=== PATIENT | male | born 1950 | race Hispanic/Latino ===

== ENCOUNTER 2021-06-03 09:20 | Observation (INO) | payer MEDICARE, OTHER ==
[2021-06-03 10:18] LABS: Absolute Lymphocytes (CBC) 1.3 K/uL (0.7-4.9); Hematocrit 35.2 % (39.6-49.0); Lymphocytes % 16.8 % (15.3-44.8); MPV 8.4 fL (7.6-11.3); RBC Red Blood Cell Count 3.95 M/uL (4.33-5.43)
[2021-06-03 10:22] LABS: Protime INR 1.05
[2021-06-03] MEDS ORDERED: PIPERACIL/TAZO 3.375 GM VIAL IV ONE (10:22)
[2021-06-03] MEDS ORDERED: TETANUS & DIPHTHERIA TOX,ADULT 0.5 ML VIAL ONE (10:22)
[2021-06-03] MEDS ORDERED: NA CHLORIDE 0.9% 500 ML ONE ×2 (10:22→15:00)
[2021-06-03] MEDS ORDERED: NA CHLORIDE 0.9% 100 ML IV ONE (10:23)
[2021-06-03] MEDS ORDERED: NA CHLORIDE 0.9% 1,000 ML ONE ×2 (10:23→19:50)
[2021-06-03 10:38] LABS: Albumin 3.1 g/dL (3.4-5.0); Bilirubin Direct 0.1 mg/dL (0-0.2); Bilirubin Total 0.5 mg/dL (0.2-1.0); CKMB Creatine Kinase MB 4.1 ng/mL (1.0-3.6); Protein, Total 7.4 g/dL (6.4-8.2); Troponin High Sensitivity 9.2 pg/mL (<58.9)
[2021-06-03 10:39] LABS: Potassium 4.8 mmol/L (3.5-5.1)
[2021-06-03] MEDS ORDERED: MORPHINE 2 MG/ML SYR ONE (11:18)
[2021-06-03] MEDS ORDERED: ONDANSETRON 4 MG/2 ML VIAL ONE (11:18)
--- NOTE | 2021-06-03 11:24 | EDPHYS ---
Physician Documentation [facility] [place] Name: Aubrey Cardozo Age: 71 yrs Sex: Male : 1950 Arrival Date: 06/03/2021 Time: 09:24 Bed 5 Private MD: ED Physician Al Kerns HPI: 06/03 11:13 This 71 yrs old Male presents to ER via Ambulatory with complaints of Foot wade Pain - Cellulitis. 11:13 The patient presents with decreased range of motion, pain, that is acute. The wade complaints affect the right foot. Context: The problem was sustained at an unknown location. Onset: The symptoms/episode began/occurred 3 day(s) ago. Modifying factors: The symptoms are alleviated by elevation of extremity, the symptoms are aggravated by weight bearing, movement. Associated signs and symptoms: Pertinent positives: warmth, weakness. Severity of symptoms: At their worst the symptoms were mild, moderate, in the emergency department the symptoms are unchanged. Unable to obtain HPI due to. The patient has not experienced similar symptoms in the past. Historical: - Allergies: 09:38 No Known Allergies; ph - PMHx: 09:38 Diabetes mellitus; ph - Immunization history:: Client reports receiving the 2nd dose of the Covid vaccine. - Social history:: Smoking status: Patient denies any tobacco usage or history of. - Family history:: not pertinent. ROS: 11:13 Constitutional: Negative for fever, chills, and weight loss, Eyes: Negative for injury, wade pain, redness, and discharge, ENT: Negative for injury, pain, and discharge, Neck: Negative for injury, pain, and swelling, Cardiovascular: Negative for chest pain, palpitations, and edema, Respiratory: Negative for shortness of breath, cough, wheezing, and pleuritic chest pain, Abdomen/GI: Negative for abdominal pain, nausea, vomiting, diarrhea, and constipation, Back: Negative for injury and pain, : Negative for injury, bleeding, discharge, and swelling, Neuro: Negative for headache, weakness, numbness, tingling, and seizure, Psych: Negative for depression, anxiety, suicide ideation, homicidal ideation, and hallucinations, Allergy/Immunology: Negative for hives, rash, and allergies, Endocrine: Negative for neck swelling, polydipsia, polyuria, polyphagia, and marked weight changes, Hematologic/Lymphatic: Negative for swollen nodes, abnormal bleeding, and unusual bruising. 11:13 MS/extremity: Positive for decreased range of motion, erythema, pain, swelling, tenderness, of the dorsum of right foot, right first toe and Right first toenail. Exam: 11:13 Constitutional: This is a well developed, well nourished patient who is awake, alert, waed and in no acute distress. Head/Face: Normocephalic, atraumatic. Eyes: Pupils equal round and reactive to light, extra-ocular motions intact. Lids and lashes normal. Conjunctiva and sclera are non-icteric and not injected. Cornea within normal limits. Periorbital areas with no swelling, redness, or edema. ENT: Nares patent. No nasal discharge, no septal abnormalities noted. Tympanic membranes are normal and external auditory canals are clear. Oropharynx with no redness, swelling, or masses, exudates, or evidence of obstruction, uvula midline. Mucous membranes moist. Neck: Trachea midline, no thyromegaly or masses palpated, and no cervical lymphadenopathy. Supple, full range of motion without nuchal rigidity, or vertebral point tenderness. No Meningismus. Chest/axilla: Normal chest wall appearance and motion. Nontender with no deformity. No lesions are appreciated. Cardiovascular: Regular rate and rhythm with a normal S1 and S2. No gallops, murmurs, or rubs. Normal PMI, no JVD. No pulse deficits. Respiratory: Lungs have equal breath sounds bilaterally, clear to auscultation and percussion. No rales, rhonchi or wheezes noted. No increased work of breathing, no retractions or nasal flaring. Abdomen/GI: Soft, non-tender, with normal bowel sounds. No distension or tympany. No guarding or rebound. No evidence of tenderness throughout. Back: No spinal tenderness. No costovertebral tenderness. Full range of motion. Male : Normal genitalia with no discharge or lesions. Neuro: Awake and alert, GCS 15, oriented to person, place, time, and situation. Cranial nerves II-XII grossly intact. Motor strength 5/5 in all extremities. Sensory grossly intact. Cerebellar exam normal. Normal gait. Psych: Awake, alert, with orientation to person, place and time. Behavior, mood, and affect are within normal limits. 11:13 Skin: cellulitis, that is mild, on the right foot, induration, that is mild is noted, located on the right first toe and Right first toenail. 12:11 ECG was reviewed by the Attending Physician. [facility] Vital Signs: 09:34 BP 85 / 56; Pulse 64; Resp 18; Temp 98.2; Pulse Ox 97% on R/A; ph 09:45 BP 102 / 55; Pulse 60; Resp 19; Pulse Ox 96% ; Weight 63.46 kg; 7 10:01 BP 89 / 52; Pulse 54; Resp 16; Pulse Ox 96% ; ww 11:45 BP 100 / 47; Pulse 54; Resp 18; Pulse Ox 100% on R/A; ww 12:35 BP 97 / 47; Pulse 52; Resp 16; Pulse Ox 98% on R/A; ww 15:05 Height 5 ft. 4 in. (162.56 cm); 7 19:00 BP 109 / 56; Pulse 52; Resp 16; Pulse Ox 100% on R/A; st1 20:58 BP 102 / 50; Pulse 55; Resp 16; Pulse Ox 98% on R/A; Pain 0/10; st1 15:05 Body Mass Index 24.01 (63.46 kg, 162.56 cm) [facility] MDM: 10:10 Patient medically screened. [facility] 11:13 Differential diagnosis: fracture, arthritis, cellulitis. Data reviewed: vital signs, [facility] nurses notes, lab test result(s), EKG, radiologic studies, plain films. Data interpreted: monitoring specialist: rate is 60 beats/min, rhythm is regular, Pulse oximetry: on room air is 96 %. Test interpretation: by ED physician or midlevel provider: ECG, plain radiologic studies. Counseling: I had a detailed discussion with the patient and/or guardian regarding: the historical points, exam findings, and any diagnostic results supporting the discharge/admit diagnosis, lab results, radiology results. 06/03 10:06 Order name: Glucose, Ancillary Testing; Complete Time: 12:12 [facility] 06/03 10:06 Order name: Amylase, Serum [facility] 06/03 10:06 Order name: Basic Metabolic Panel; Complete Time: 12:12 [facility] 06/03 10:06 Order name: Blood Culture Adult (2) [facility] 06/03 10:06 Order name: CBC with Diff; Complete Time: 12:12 [facility] 06/03 10:06 Order name: CPK; Complete Time: 12:12 [facility] 06/03 10:06 Order name: Ckmb; Complete Time: 12:12 [facility] 06/03 10:06 Order name: LFT's; Complete Time: 12:12 [facility] 06/03 10:06 Order name: Lactate; Complete Time: 12:12 [facility] 06/03 10:06 Order name: Lipase; Complete Time: 12:12 [facility] 06/03 10:06 Order name: Procalcitonin; Complete Time: 12:12 [facility] 06/03 10:06 Order name: Protime (+inr); Complete Time: 12:12 [facility] 06/03 10:06 Order name: Ptt, Activated; Complete Time: 12:12 [facility] 06/03 10:06 Order name: Troponin HS; Complete Time: 12:12 [facility] 06/03 10:06 Order name: Urine Microscopic Only [facility] 06/03 10:06 Order name: COVID-19 SARS RT PCR (Document "Date of Onset" if Symptomatic); Complete [facility] Time: 12:12 06/03 10:06 Order name: Amylase; Complete Time: 12:12 [facility] 06/03 10:16 Order name: Magnesium wade 06/03 10:16 Order name: NT PRO-BNP wade 06/03 13:48 Order name: Basic Metabolic Panel [facility] 06/03 13:48 Order name: Basic Metabolic Panel [facility] 06/03 13:48 Order name: Protime (+INR) EDMS 06/03 13:48 Order name: Protime (+INR) [facility] 06/03 13:48 Order name: PTT, Activated Partial Thromb EDMS 06/03 13:48 Order name: PTT, Activated Partial Thromb EDMS 06/03 13:48 Order name: CBC with Automated Diff EDMS 06/03 13:48 Order name: CBC with Automated Diff EDMS 06/03 13:48 Order name: Procalcitonin [facility] 06/03 15:59 Order name: Urine Dipstick-Ancillary EDMS 06/03 17:52 Order name: Glucose, Ancillary Testing [facility] 06/03 10:06 Order name: Chest Single View XRAY; Complete Time: 12:12 [facility] 06/03 10:06 Order name: Accucheck; Complete Time: 10:06 [facility] 06/03 10:06 Order name: Cardiac monitoring; Complete Time: 10: [facility] 06/03 10:06 Order name: EKG - Nurse/Tech; Complete Time: 10: [facility] 06/03 10:06 Order name: IV Saline Lock - Large Bore; Complete Time: 10: [facility] 06/03 10:06 Order name: Labs collected and sent; Complete Time: 10: [facility] 06/03 10:06 Order name: O2 Per Protocol; Complete Time: 10: [facility] 06/03 10:06 Order name: O2 Sat Monitoring; Complete Time: 10: [facility] 06/03 10:16 Order name: EKG; Complete Time: 10:17 [facility] 06/03 10:16 Order name: IV Saline Lock; Complete Time: 10:20 [facility] 06/03 10:16 Order name: US LE Artery Uni Ltd; Complete Time: 12:12 [facility] 06/03 10:16 Order name: Foot Right 3 View XRAY; Complete Time: 12:12 [facility] 06/03 13:48 Order name: CONS Physician Consult [facility] 06/03 13:48 Order name: 60g Consistent Carbohydrate (ADA 1800/2000) [facility] 06/03 13:50 Order name: CONS Physician Consult EDMS EC:11 Rate is 62 beats/min. Rhythm is regular. QRS [place] is Normal. LA interval is normal. QRS wade interval is normal. QT interval is normal. No Q waves. T waves are Normal. No ST changes noted. Clinical impression: NSR w/ Non-specific ST/T Changes and No evidence of ischemia. Interpreted by me. Reviewed by me. 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 Exp: jl7 08/31/2022. Lot #: [id number]. } Route: IM; Site: right deltoid; 11:25 Drug: Zofran (Ondansetron) 4 mg Route: IVP; Site: left forearm; jl7 11:26 Drug: morphine 2 mg Route: IVP; Site: left forearm; jl7 Disposition Summary: 06/03/21 11:23 Hospitalization Ordered Hospitalization Status: Inpatient Admission wade Provider: Darlene Otero cha Condition: Fair wade Problem: new wade Symptoms: have improved wade Bed/Room Type: Standard wade Location: Telemetry/MedSurg (Inpatient)(06/03/21 18:34) bd Room Assignment: 213(06/03/21 18:34) bd Diagnosis - Acute lymphadenitis of lower limb wade - Cellulitis and acute lymphangitis of other parts of limb - right great toe wade - Type 2 diabetes mellitus with hyperglycemia wade - Peripheral vascular disease, unspecified wade Forms: - Medication Reconciliation Form wade - SBAR form wade Signatures: Dispatcher [employer] EDNati Willams Corey, MD MD cha Williams, Irene, RN CIRO iw Petty Martel RN RN ph Leal, Jahala RN RN jl7 Corrections: (The following items were deleted from the chart) 10:17 10:06 NS 0.9% (30 ml/kg) 30 ml/kg IV at bolus once; Sepsis Protocol ordered. jl7 wade 13:14 11:23 Telemetry/MedSurg (Inpatient) wade iw 13:14 11:23 wade iw 18:34 13:14 [facility] ER HOLD iw bd 18:34 13:14 ERHOLD- iw bd
--- NOTE | 2021-06-03 11:24 | ER ---
Nurse's Notes [facility] [place] Name: Aubrey Cardozo Age: 71 yrs Sex: Male : 1950 Arrival Date: 06/03/2021 Time: 09:24 Bed 5 Private MD: Diagnosis: Acute lymphadenitis of lower limb;Cellulitis and acute lymphangitis of other parts of limb-right great toe;Type 2 diabetes mellitus with hyperglycemia;Peripheral vascular disease, unspecified Presentation: 06/03 09:34 Chief complaint:. Chief complaint: Patient's son or daughter states: Has hx of PVD, ph cellulitis to R foot, pain to both feet. No fever N/V. Coronavirus screen: At this time, the client does not indicate any symptoms associated with coronavirus-19. Ebola Screen: No symptoms or risks identified at this time. Initial Sepsis Screen: Does the patient meet any 2 criteria? Systolic BP < 90 mmHg. Mean Arterial Pressure (MAP) < 65. Does the patient have a suspected source of infection? Yes:. Risk Assessment: Do you want to hurt yourself or someone else? Patient reports no desire to harm self or others. Onset of symptoms was June 03, 2021. 09:34 Method Of Arrival: Ambulatory ph 09:34 Acuity: JAGDEEP 2 ph Historical: - Allergies: 09:38 No Known Allergies; ph - PMHx: 09:38 Diabetes mellitus; ph - Immunization history:: Client reports receiving the 2nd dose of the Covid vaccine. - Social history:: Smoking status: Patient denies any tobacco usage or history of. - Family history:: not pertinent. Screenin:45 Abuse screen: Denies threats or abuse. Denies injuries from another. Nutritional jl7 screening: No deficits noted. Tuberculosis screening: No symptoms or risk factors identified. Fall Risk IV access (20 points). Total Quinonez Fall Scale indicates No Risk (0-24 pts). Assessment: 09:45 General: Appears in no apparent distress. uncomfortable, Behavior is calm, cooperative, jl7 appropriate for age. Pain: Complains of pain in dorsum of right foot Pain currently is 12 out of 10 on a pain scale. Neuro: Level of Consciousness is awake, alert, obeys commands, Oriented to person, place, time, situation. Cardiovascular: Patient's skin is warm and dry. Respiratory: Airway is patent Respiratory effort is even, unlabored, Respiratory pattern is regular, symmetrical. Derm: Skin is pink, warm \T\ dry. redness noted from right first toe extending to right ankle. 10:34 Reassessment: Patient appears in no apparent distress at this time. No changes from ww previously documented assessment. Patient and/or family updated on plan of care and expected duration. Pain level reassessed. Patient is alert, oriented x 3, equal unlabored respirations, skin warm/dry/pink. Patient states feeling better. 11:28 Reassessment: Patient appears in no apparent distress at this time. No changes from ww previously documented assessment. Patient and/or family updated on plan of care and expected duration. Pain level reassessed. Patient is alert, oriented x 3, equal unlabored respirations, skin warm/dry/pink. 12:35 Reassessment: Patient appears in no apparent distress at this time. No changes from ww previously documented assessment. Patient and/or family updated on plan of care and expected duration. Pain level reassessed. Patient is alert, oriented x 3, equal unlabored respirations, skin warm/dry/pink. 21:04 Reassessment: Report given to Eda pack puller nurse. st1 Vital Signs: 09:34 BP 85 / 56; Pulse 64; Resp 18; Temp 98.2; Pulse Ox 97% on R/A; ph 09:45 BP 102 / 55; Pulse 60; Resp 19; Pulse Ox 96% ; Weight 63.46 kg; jl7 10:01 BP 89 / 52; Pulse 54; Resp 16; Pulse Ox 96% ; ww 11:45 BP 100 / 47; Pulse 54; Resp 18; Pulse Ox 100% on R/A; ww 12:35 BP 97 / 47; Pulse 52; Resp 16; Pulse Ox 98% on R/A; ww 15:05 Height 5 ft. 4 in. (162.56 cm); jl7 19:00 BP 109 / 56; Pulse 52; Resp 16; Pulse Ox 100% on R/A; st1 20:58 BP 102 / 50; Pulse 55; Resp 16; Pulse Ox 98% on R/A; Pain 0/10; st1 15:05 Body Mass Index 24.01 (63.46 kg, 162.56 cm) 7 ED Course: 09:24 Patient arrived in ED. ds1 09:38 Triage completed. ph 09:38 Arm band placed on Patient placed in an exam room, on a stretcher. ph 09:41 Elinor Henning, RN is Primary Nurse. jl7 09:45 Patient has correct armband on for positive identification. Bed in low position. Call jl7 light in reach. Side rails up X 1. monitoring manager on. Pulse ox on. NIBP on. Warm blanket given. 09:50 Inserted saline lock: 20 gauge in right forearm, using aseptic technique. Blood jl7 collected. 09:50 Initial lab(s) drawn, by pa, sent to lab. EKG done, by ED staff, reviewed by Al Kerns MD. 09:55 Inserted saline lock: 20 gauge in left forearm, using aseptic technique. Blood jl7 collected. 10:10 Al Kerns MD is Attending Physician. wade 11:15 LE Artery Uni Ltd In Process Unspecified. EDMS 11:18 Chest Single View XRAY In Process Unspecified. EDMS 11:18 Foot Right 3 View XRAY In Process Unspecified. EDMS 11:22 Darlene Otero MD is Hospitalizing Provider. wade 12:02 Amylase, Serum Sent. ww 19:28 Primary Nurse role handed off by Elinor Henning, CIRO mw2 19:34 Kathrine Ross, CIRO is Primary Nurse. st1 19:36 No provider procedures requiring assistance completed. st1 20:59 Patient admitted, IV remains in place. 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 Exp: jl7 08/31/2022. Lot #: [id number]. } Route: IM; Site: right deltoid; 11:25 Drug: Zofran (Ondansetron) 4 mg Route: IVP; Site: left forearm; jl7 11:26 Drug: morphine 2 mg Route: IVP; Site: left forearm; jl7 Outcome: 11:23 Decision to Hospitalize by Provider. [facility] 20:59 Admitted to Tele accompanied by tech, via stretcher, room 213, with chart. st1 20:59 Condition: stable st1 21:20 Patient left the ED. sm5 Signatures: Dispatcher [employer] EDAl Purvis MD MD cha Sanford, Demi ds1 Petty Martel, RN RN Elinor Henning RN RN jl7 Fuad Pryor2 Angella Morris RN RN sm5 Tamara Hamilton, RN RN Kathrine Humphries, RN RN st1
--- NOTE | 2021-06-03 11:26 | RAD REPORT ---
EXAM DESCRIPTION: RAD - Chest Single View - 06/03/2021 11:18 am CLINICAL HISTORY: CHEST PAIN COMPARISON: None TECHNIQUE: AP portable chest image was obtained 06/03/2021 11:18 am . FINDINGS: Lungs are clear. Heart and vasculature are normal. Sternotomy wires are in place. No measu rable pleural effusion and no pneumothorax. No acute bony abnormality seen. No acute aortic findings suspected. IMPRESSION: No acute cardiopulmonary process.
--- NOTE | 2021-06-03 11:27 | RAD REPORT ---
EXAM DESCRIPTION: RAD - Foot Right 3 View - 06/03/2021 11:18 am CLINICAL HISTORY: PAIN COMPARISON: No comparisonsNone. FINDINGS: No fracture, dislocation or periosteal reaction. No acute or destructive bone process seen . IP joint and first MTP joint space narrowing seen. No spurring or erosive component. No air or foreign body in the soft tissues. Arterial tree calcifications are present. IMPRESSION: Negative right foot examination for acute bone or joint finding. Mild degenerative change involves the first MTP joint and the IP joints of the toes. No air, foreign body or suspicious soft tissue finding.
--- NOTE | 2021-06-03 11:53 | RAD REPORT ---
EXAM DESCRIPTION: US - Lower Extremity Artery Uni Ltd - 06/03/2021 11:15 am CLINICAL HISTORY: PAIN COMPARISON: Lower Extremity Arterial Bilat dated 05/27/2021 TECHNIQUE: Doppler evaluation of the right lower extremity arterial tree performed. Waveforms and ve locity values were obtained along with visual inspection. FINDINGS: Biphasic waveform pattern seen in the right common femoral, superficial femoral and poplit eal arteries. Prominent atherosclerotic calcifications line the sadnoval of these vessels. There is no o cclusion or focal flow restricting lesion through these vessels. On today's study a monophasic waveform pattern was identifiable in the posterior tibial and dorsalis pedis arteries. IMPRESSION: Significant right lower extremity peripheral arterial disease present but no occlusion o r focal flow restricting lesion identifiable. On today's study, blood flow was identifiable in the posterior tibial and dorsalis pedis arteries.
[2021-06-03] MEDS ORDERED: HYDROMORPHONE HCL 1 MG/ML INJ IV PRN (13:43)
[2021-06-03] MEDS ORDERED: ONDANSETRON 4 MG/2 ML VIAL IV PRN (13:43)
[2021-06-03] MEDS ORDERED: ACETAMINOPHEN 500 MG TAB PO PRN (13:43)
--- NOTE | 2021-06-03 13:55 | P.HP ---
Certification for Inpatient Patient admitted to: Inpatient With expected LOS: >2 Midnights Patient will require the following post-hospital care: None Practitioner: I am a practitioner with admitting privileges, knowledge of patient current condition, hospital course, and medical plan of care. Services: Services provided to patient in accordance with Admission requirements found in Title 42 Section 412.3 of the Code of Federal Regulations Patient History Date of Service: 06/03/21 Reason for admission: Osteomyelitis History of Present Illness: Patient is a 71-year-old gentleman came to the hospital with toe infection. Patient's right toe was discolored. Patient also has some erythema that spread downward. Patient also had arterial Dopplers that revealed peripheral arterial disease. Patient will be admitted to the hospital for antibiotic therapy. We will do an MRI to rule out osteomyelitis. Also get a cardiology consultation to evaluate his peripheral arterial disease. Allergies No Known Allergies Allergy (Verified 05/20/21 16:52) Home Medications: Acetaminophen 1,000 mg PO DAILY PRN 05/20/21 Dapagliflozin Propanediol [Farxiga] 5 mg PO DAILY 05/20/21 Ferrous Sulfate [Ferrous Sulfate*] 325 mg PO DAILY 05/20/21 Losartan Potassium 50 mg PO BEDTIME 05/20/21 Metformin HCl 1,000 mg PO BID 05/20/21 Atorvastatin Calcium 40 mg PO DAILY 06/03/21 Aspirin [Adult Aspirin Regimen] 162 mg PO DAILY #60 06/04/21 Metoprolol Succinate 25 mg PO DAILY #30 tab.er.24h 06/04/21 Pentoxifylline 400 mg PO BID #60 tablet.er 06/04/21 levoFLOXacin [Levaquin] 500 mg PO DAILY #7 tab 06/04/21 - Past Medical/Surgical History Diabetic: Yes -: HTN -: DM -: CAD -: CABG x5 - Family History Father Family History: Reviewed- Non-Contributory - Social History Smoking Status: Former smoker Alcohol use: Yes Review of Systems 10-point ROS is otherwise unremarkable Physical Examination - Vital Signs Temperature: 98 F Blood Pressure: 140/80 Pulse: 85 Respirations: 18 Pulse Ox (%): 96 - Physical Exam General: Alert, In no apparent distress, Oriented x3 HEENT: Atraumatic, PERRLA, Mucous membr. moist/pink, EOMI, Sclerae nonicteric Neck: Supple, 2+ carotid pulse no bruit, No LAD, Without JVD or thyroid abnormality Respiratory: Clear to auscultation bilaterally, Normal air movement Cardiovascular: Regular rate/rhythm, Normal S1 S2, No murmurs Gastrointestinal: Normal bowel sounds, Soft and benign, Non-distended, No tenderness Musculoskeletal: No clubbing, No swelling, Erythema, Tenderness, Warmth, Other (Discoloration of the right great toe) Integumentary: Erythema, Warmth Neurological: Normal gait, Normal speech, Normal strength at 5/5 x4 extr, Normal tone, Sensation intact, Cranial nerves 3-12 intact, Normal affect Lymphatics: No axilla or inguinal lymphadenopathy - Studies Laboratory Data (last 24 hrs) 06/03/21 09:55: PT 12.1, INR 1.05, APTT 30.7 06/03/21 09:55: WBC 8.00, Hgb 11.8 L, Hct 35.2 L, Plt Count 269 06/03/21 09:55: Sodium 136, Potassium 4.8, BUN 20 H, Creatinine 0.98, Glucose 259 H, Total Bilirubin 0.5, AST 26, ALT 28, Alkaline Phosphatase 83, Amylase 103, Lipase 271 Assessment & Plan - Problems (Diagnosis) (1) Osteomyelitis Status: Acute (2) CAD (coronary artery disease) Status: Acute (3) Diabetes Status: Acute (4) HTN (hypertension) Status: Acute (5) Hx of CABG Status: Acute - Plan PLAN: 1. Continue with IV antibiotic 2. Continue with local wound care 3. Wound care consultation/surgical consultation 4. Gentle IV hydration 5. Monitor CBC 6. Strict blood sugar monitoring 7. Pain control 8. Arterial Doppler and cardiology consultation pending 9. GI and DVT prophylaxis Discharge Plan: Home Plan to discharge in: Greater than 2 days - Advance Directives Does patient have a Living Will: No Does patient have a Durable POA for Healthcare: Yes - Code Status/Comfort Care Code Status Assessed: Yes Code Status: Full Code Critical Care: No Time Spent Managing PTS Care (In Minutes): 45
[2021-06-03 15:59] LABS: Urine Blood Negative (Negative); Urine Glucose 3+ (Negative); Urine Protein Negative (Negative); Urine Specific Gravity <=1.005 (1.005-1.030)
[2021-06-03] MEDS ORDERED: VANCOMYCIN 1.5 GM in NA CHLORIDE 0.9% 500 ML IVPB ONE (16:00)
[2021-06-03] MEDS ORDERED: Levofloxacin500mg IV 500 MG/100 ML BAG IV SCH (16:00)
[2021-06-03 16:26] LABS: Urine Bacteria <20 /HPF (NONE SEEN); Urine RBC <5 /HPF (NONE SEEN)
[2021-06-03] MEDS ORDERED: Levofloxacin500mg IV 500 MG/100 ML BAG IV ONE (18:19)
[2021-06-03 19:02] LABS: Magnesium 1.9 mg/dL (1.8-2.4)
[2021-06-03 22:52] VITALS: O2SAT 98
[2021-06-03 23:05] VITALS: BMI 23.7
[2021-06-03] MEDS ORDERED: GLUCAGON 1 MG/VIAL IM PRN (23:33)
[2021-06-03] MEDS ORDERED: D50W 25 GM/50 ML SYRINGE IV PRN (23:33)
[2021-06-04] MEDS: INSULIN -REGULAR HUMAN 50 UNIT/0.5 ML ML SQ SCH ×3 (00:48→11:30)
[2021-06-04 05:00] LABS: Absolute Lymphocytes (CBC) 2.1 K/uL (0.7-4.9); Hematocrit 29.3 % (39.6-49.0); Lymphocytes % 31.2 % (15.3-44.8); MPV 7.9 fL (7.6-11.3); RBC Red Blood Cell Count 3.37 M/uL (4.33-5.43)
[2021-06-04 05:09] LABS: Protime INR 1.04
[2021-06-04 05:17] LABS: Potassium 4.9 mmol/L (3.5-5.1)
--- NOTE | 2021-06-04 07:26 | EKG ---
Test Date: 2021-06-03 Test Time: 09:46:24 Underwriting Consultant: ROSEMARIE MEASUREMENT RESULTS: Intervals: Rate: 62 DC: 180 QRSD: 106 QT: 424 QTc: 430 [place]: P: -3 DC: 180 QRS: -37 T: 25 INTERPRETIVE STATEMENTS: Normal sinus rhythm Left axis deviation Nonspecific ST and T wave abnormality Abnormal ECG No previous ECG available for comparison Electronically Signed On 06-04-21 07:22:47 TRIAGE CLINICIAN by Ellis Dyer
[2021-06-04] MEDS ORDERED: METOPROLOL XL 25 MG TAB PO SCH (09:00)
[2021-06-04] MEDS ORDERED: FERROUS SULFATE 325 MG TAB PO SCH (09:00)
[2021-06-04] MEDS ORDERED: HOME MED 1 EA UNK (Metformin Hcl [Metformin Hcl] 1,000 MG Tablet) PO SCH (09:00)
[2021-06-04] MEDS ORDERED: ASPIRIN EC 81 MG TAB PO SCH ×2 (09:00)
[2021-06-04] MEDS ORDERED: ATORVASTATIN 40 MG TAB PO SCH ×2 (09:00→21:00)
[2021-06-04] MEDS ORDERED: HOME MED 1 EA UNK (Dapagliflozin Propanediol [Farxiga] 5 MG Tablet) PO SCH (09:00)
--- NOTE | 2021-06-04 09:15 | RAD REPORT ---
EXAM DESCRIPTION: MRI - Foot Right Wo Cont - 06/04/2021 8:46 am CLINICAL HISTORY: OSTEOMYELITIS/PAD Foot pain and swelling, osteomyelitis. COMPARISON: Foot Right 3 View dated 06/03/2021 FINDINGS: No fracture, subluxation or aggressive marrow lesion is observed. No soft tissue mass or h ematoma is seen. No evidence of osteomyelitis. IMPRESSION: No evidence of osteomyelitis.
[2021-06-04] MEDS ORDERED: Levofloxacin500mg IV 500 MG/100 ML BAG IV SCH (11:00)
[2021-06-04] MEDS ORDERED: VANCOMYCIN 1.25 GM in NA CHLORIDE 0.9% 250 ML IVPB SCH ×5 (12:00→16:00)
[2021-06-04 13:34] VITALS: BP 140/80; TEMP 98
--- NOTE | 2021-06-04 13:35 | P.DS ---
Discharge Date: 06/04/21 Disposition: ROUTINE DISCHARGE Discharge Condition: GOOD Reason for Admission: Osteomyelitis Consultations: Cardiology - Problems (1) Osteomyelitis Status: Acute (2) CAD (coronary artery disease) Status: Acute (3) Diabetes Status: Acute (4) HTN (hypertension) Status: Acute (5) Hx of CABG Status: Acute Brief History of Present Illness: Patient is a 71-year-old gentleman came to the hospital with toe infection. Patient's right toe was discolored. Patient also has some erythema that spread downward. Patient also had arterial Dopplers that revealed peripheral arterial disease. Patient will be admitted to the hospital for antibiotic therapy. We will do an MRI to rule out osteomyelitis. Also get a cardiology consultation to evaluate his peripheral arterial disease. Hospital Course: Patient clinical symptoms have improved. Patient MRI was negative. Spoke with cardiology and they recommended further outpatient follow-up. Patient is clinically doing well. His mother and he wants to go home. We will discharge her with outpatient follow-up with podiatry and cardiology. Vital Signs/Physical Exam: Temp Pulse Resp BP Pulse Ox 98 F 85 18 140/80 96 06/04/21 13:34 06/04/21 13:34 06/04/21 13:34 06/04/21 13:34 06/04/21 13:34 General: Alert, In no apparent distress, Oriented x3 Laboratory Data at Discharge: WBC 6.70 K/uL (4.3-10.9) D 06/04/21 04:38 Hgb 10.3 g/dL (13.6-17.9) L 06/04/21 04:38 Hct 29.3 % (39.6-49.0) L D 06/04/21 04:38 Plt Count 236 K/uL (152-406) 06/04/21 04:38 PT 12.0 SECONDS (9.5-12.5) 06/04/21 04:38 INR 1.04 06/04/21 04:38 APTT 26.7 SECONDS (24.3-36.9) 06/04/21 04:38 Sodium 144 mmol/L (136-145) 06/04/21 04:38 Potassium 4.9 mmol/L (3.5-5.1) 06/04/21 04:38 BUN 22 mg/dL (7-18) H 06/04/21 04:38 Creatinine 0.90 mg/dL (0.55-1.3) 06/04/21 04:38 Glucose 113 mg/dL (74-106) H 06/04/21 04:38 Magnesium 1.9 mg/dL (1.8-2.4) 06/03/21 10:16 Total Bilirubin 0.5 mg/dL (0.2-1.0) 06/03/21 09:55 AST 26 U/L (15-37) 06/03/21 09:55 ALT 28 U/L (12-78) 06/03/21 09:55 Alkaline Phosphatase 83 U/L (45-117) 06/03/21 09:55 Amylase 103 U/L (25-115) 06/03/21 09:55 Lipase 271 U/L (73-393) 06/03/21 09:55 Home Medications: Acetaminophen 1,000 mg PO DAILY PRN 05/20/21 Dapagliflozin Propanediol [Farxiga] 5 mg PO DAILY 05/20/21 Ferrous Sulfate [Ferrous Sulfate*] 325 mg PO DAILY 05/20/21 Losartan Potassium 50 mg PO BEDTIME 05/20/21 Metformin HCl 1,000 mg PO BID 05/20/21 Atorvastatin Calcium 40 mg PO DAILY 06/03/21 Aspirin [Adult Aspirin Regimen] 162 mg PO DAILY #60 06/04/21 Metoprolol Succinate 25 mg PO DAILY #30 tab.er.24h 06/04/21 Pentoxifylline 400 mg PO BID #60 tablet.er 06/04/21 levoFLOXacin [Levaquin] 500 mg PO DAILY #7 tab 06/04/21 New Medications: Aspirin [Adult Aspirin Regimen] 162 mg PO DAILY #60 levoFLOXacin [Levaquin] 500 mg PO DAILY #7 tab Metoprolol Succinate 25 mg PO DAILY #30 tab.er.24h Pentoxifylline 400 mg PO BID #60 tablet.er Physician Discharge Instructions: -DC IV and DC home -Follow-up with PCP in 1 to 2 weeks -Follow-up with Cardiology in 1 to 2 weeks -Please call Dr. Otero at [phone] if any questions regarding hospital stay -Please call nursing station at [phone] if any nursing or medication questions -Return to the emergency room if symptoms worsen Diet: AHA Activity: Fall precautions Followup: [facility] [Provider Group] - 1-2 Weeks (call to schedule an appointment) Eloise Cross MD [Primary Care Provider] - 1-2 Weeks (call to schedule an appointment ) Time spent managing pt's care (in minutes): 35
[2021-06-04] MEDS ORDERED: METFORMIN HCL 500 MG TAB PO SCH (17:00)
[2021-06-04] MEDS ORDERED: LOSARTAN POTASSIUM 50 MG TABLET PO SCH (21:00)
--- NOTE | 2021-06-06 09:49 | CON ---
Date of Consultation: 06/04/2021 Reason For Consultation: Peripheral arterial disease. History Of Present Illness: Mr. Cardozo is a 71-year-old male. Has a history of diabetes, hypertensi on, dyslipidemia. Came with cellulitis. Arterial Doppler showed nonfocal diffuse disease in the rig ht lower extremity. There was no focal stenosis. The disease was diffuse below the knee. I was ask ed to see him to see if he is a candidate for abdominal angiogram and runoff. The patient's symptoms have improved. No evidence of osteomyelitis. He denied any cardiac symptoms. Past Medical History: As stated above. Allergies: NONE. Review of Systems: Negative. Social History: Negative. Family History: Negative. Medications: At home include Lipitor, aspirin, Norvasc, iron, Farxiga, losartan, metformin, and meto prolol. Physical Examination: Vital Signs: Stable, afebrile. HEENT: Negative. Neck: Supple with no bruit. Chest: Clear. Cardiac: Revealed a regular rhythm and rate. No murmurs, gallops, or rubs. Abdomen: Benign. Extremities: Revealed no clubbing, cyanosis, or edema. Cellulitis on the right lower extremity has improved. He had distal pulses in the dorsalis pedis and the posterior tibial bilaterally, although they were weak. Diagnostic Data: EKG was normal. Chest x-ray was normal. Arterial Doppler as stated earlier. Impression And Plan: Diffuse peripheral arterial disease below the knee, small vessel. No focal nubia nosis. I think we need to treat him medically. I do not think he is a candidate for abdominal angio gram with runoff at this point. We will continue his medications at home. Consider adding Plavix. Consider adding Trental. I will discuss the case further with Dr. Otero. He can go home whenever it is okay with Dr. Otero. His other problems including hypertension, dyslipidemia, diabetes are very we ll controlled. NB/MODL Voice ID: [id number] Report ID: [id number]
== END 2021-06-04 12:58 | disposition home or self-care (01) ==
LOC: ER 09:20 → INTOOBSV 13:43 → ERHOLD 13:43 → 2ND 19:15
PROVIDERS: ADMIT Hospitalist; ATTEND Hospitalist
DX: L03.031 Cellulitis of right toe (principal); I73.9 Peripheral vascular disease, unspecified; E11.9 Type 2 diabetes mellitus without complications; I10 Essential (primary) hypertension; E78.5 Hyperlipidemia, unspecified; I25.10 Atherosclerotic heart disease of native coronary artery without angina pectoris; Z95.1 Presence of aortocoronary bypass graft
CPT/HCPCS: 93005; 87040 ×2; 85025 ×2; 80048 ×2; 36415; 82150; 83735; 82550; 85610 ×2; 82947 ×6; 80076; 83605; 85730 ×2; 84484; 82553; 83690; 84145 ×2; 83880; 71045; 73630; 90471; 93926; 73718; 90714; 96375; 96374; 99285; U0003; J2543; J3370; J2270; J7040 ×3; J7030 ×2; J2405; G0378 ×3; 81003; 81015; J7050

== ENCOUNTER 2021-09-30 08:51 | Inpatient (IN) | payer OTHER ==
--- NOTE | 2021-09-30 09:21 | ER ---
Nurse's Notes 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 Nayak at [facility] for toe aa5 amputation. 08:55 Acuity: JAGDEEP 3 aa5 08:55 Method Of Arrival: Wheelchair aa5 08:55 Coronavirus screen: At this time, the client does not indicate any symptoms associated aa5 with coronavirus-19. Ebola Screen: Patient denies travel to an Ebola-affected area in the 21 days before illness onset. Initial Sepsis Screen: Does the patient meet any 2 criteria? No. Patient's initial sepsis screen is negative. Does the patient have a suspected source of infection? No. Patient's initial sepsis screen is negative. Risk Assessment: Do you want to hurt yourself or someone else? Patient reports no desire to harm self or others. Onset of symptoms was September 30, 2021. Triage Assessment: 09:00 General: Appears distressed, uncomfortable, Behavior is calm, cooperative, appropriate bp for age. Pain: Complains of pain in right first toe and right foot. EENT: No deficits noted. Neuro: Level of Consciousness is awake, alert, obeys commands, Oriented to Appropriate for age. Cardiovascular: No deficits noted. Respiratory: No deficits noted. GI: No signs and/or symptoms were reported involving the gastrointestinal system. : No signs and/or symptoms were reported regarding the genitourinary system. Derm: Wound noted left first toe and right first toe. Musculoskeletal: No deficits noted. Historical: - Allergies: 09:09 No Known Allergies; aa5 - PMHx: 08:55 diabetes mellitus; aa5 09:09 Hypertensive disorder; Hypercholesterolemia; aa5 - PSHx: 09:09 heart bypass; right shoulder; aa5 - Immunization history:: Adult Immunizations unknown. - Social history:: Smoking status: Patient/guardian denies using tobacco. - Family history:: not pertinent. Screenin:00 Abuse screen: Denies threats or abuse. Denies injuries from another. Nutritional bp screening: No deficits noted. Tuberculosis screening: No symptoms or risk factors identified. Fall Risk None identified. Assessment: 09:00 General: SEE TRIAGE NOTE. bp 10:00 Reassessment: No changes from previously documented assessment. Patient and/or family bp updated on plan of care and expected duration. Pain level reassessed. 11:00 Reassessment: ADMIT INITIATED. HOSPITALIST AT B/S. bp 12:51 Reassessment: ROOM ASSIGNED. bp Vital Signs: 08:55 BP 156 / 83; Pulse 70; Resp 18 S; Temp 99.2(O); Pulse Ox 97% on R/A; aa5 10:00 BP 122 / 64; Pulse 66; Resp 10; Pulse Ox 100% ; bp 11:00 BP 124 / 76; Pulse 66; Resp 15; Pulse Ox 97% ; bp 12:51 BP 128 / 67; Pulse 63; Resp 11; Pulse Ox 99% ; bp 13:17 Weight 63.5 kg (R); Height 5 ft. 10 in. (177.80 cm) (R); jd3 13:17 Body Mass Index 20.09 (63.50 kg, 177.80 cm) jd3 ED Course: 08:54 Patient arrived in ED. aa5 08:55 Triage completed. aa5 08:55 Arm band placed on. aa5 08:56 Al Kerns MD is Attending Physician. wade 08:58 Leonel Brower, CIRO is Primary Nurse. bp 09:00 Patient has correct armband on for positive identification. Bed in low position. Call bp light in reach. Side rails up X2. Adult w/ patient. 09:16 Sonja Gutierrez MD is Hospitalizing Provider. wade 09:27 Inserted saline lock: 20 gauge in right forearm, using aseptic technique. Blood bp collected. 09:31 US LE Arterial Bilateral Sent. bp 09:46 US LE Arterial Bilateral In Process Unspecified. EDMS 09:53 XRAY Chest (1 view) In Process Unspecified. EDMS 09:53 Foot Right 3 View XRAY In Process Unspecified. EDMS 12:51 No provider procedures requiring assistance completed. Patient admitted, IV remains in bp place. Administered Medications: 09:27 Drug: morphine 2 mg Route: IVP; Rate: per protocol; Site: right forearm; bp 10:06 Follow up: Response: No adverse reaction; Pain is decreased bp 09:27 Drug: morphine 2 mg Route: IVP; Rate: per protocol; Site: right forearm; bp 09:27 Drug: Zofran (Ondansetron) 4 mg Route: IVP; Site: right forearm; bp 10:06 Follow up: Response: No adverse reaction bp 09:40 Drug: NS 0.9% 1000 ml Route: IV; Rate: 125 ml/hr; Site: right forearm; bp 12:50 Follow up: IV Status: Infusion continued upon admission bp 09:40 Drug: Zosyn (piperacillin-tazobactam) 3.375 grams Route: IVPB; Infused Over: 60 mins; bp Site: right forearm; 10:07 Follow up: IV Status: Completed infusion; IV Intake: 100ml bp 10:06 Drug: Dilaudid (HYDROmorphone) 0.5 mg Route: IVP; Site: right forearm; bp 11:22 Follow up: Response: No adverse reaction; Pain is decreased bp 11:10 Drug: Dilaudid (HYDROmorphone) 0.5 mg Route: IVP; Site: right forearm; bp 12:50 Follow up: Response: No adverse reaction; Pain is decreased bp 11:10 Drug: Magnesium Sulfate 1 grams Route: IVPB; Infused Over: 1 hrs; Site: right forearm; bp 12:50 Follow up: IV Status: Completed infusion; IV Intake: 100ml bp Medication: 12:51 VIS not applicable for this client. bp Intake: 10:07 IV: 100ml; Total: 100ml. bp 12:50 IV: 100ml; Total: 200ml. bp Outcome: 09:21 Decision to Hospitalize by Provider. [facility] 12:51 Condition: stable bp 12:51 Instructed on the need for admit. 14:06 Admitted to Med/surg accompanied by tech, family with patient, via wheelchair, room bp 217, with chart, Report called to CHRIS TANNER 14:34 Patient left the ED. iw Signatures: Dispatcher [employer] EDUT Al Kerns MD MD cha Williams, Irene, RN RN iw Jayda Garland RN RN aa5 Leonidas Ponce RN RN jd3 Leonel Brower RN RN bp
--- NOTE | 2021-09-30 09:21 | EDPHYS ---
Physician Documentation [facility] [place] Name: Aubrey Cardozo Age: 71 yrs Sex: Male : 1950 Arrival Date: 09/30/2021 Time: 08:54 Bed 5 Private MD: ED Physician Al Kerns HPI: 09/30 09:11 This 71 yrs old Male presents to ER via Wheelchair with complaints of sent by [facility] wound care. 09:11 The patient presents with pain, swelling, tenderness. The complaints affect the right wade foot, medial aspect of right toes, plantar aspect of right first toe and Right first toenail. Context: resulted from infection, dm, failed out patient treatment. Onset: The symptoms/episode began/occurred 5 day(s) ago. Modifying factors: The symptoms are alleviated by nothing, the symptoms are aggravated by weight bearing, movement, wearing shoes. Associated signs and symptoms: The patient has no apparent associated signs or symptoms. Severity of symptoms: At their worst the symptoms were moderate, in the emergency department the symptoms have resolved. The patient has experienced similar episodes in the past, several times. Historical: - Allergies: 09:09 No Known Allergies; aa5 - PMHx: 08:55 diabetes mellitus; aa5 09:09 Hypertensive disorder; Hypercholesterolemia; aa5 - PSHx: 09:09 heart bypass; right shoulder; aa5 - Immunization history:: Adult Immunizations unknown. - Social history:: Smoking status: Patient/guardian denies using tobacco. - Family history:: not pertinent. ROS: 09:11 Constitutional: Negative for fever, chills, and weight loss, Eyes: Negative for injury, wade pain, redness, and discharge, ENT: Negative for injury, pain, and discharge, Neck: Negative for injury, pain, and swelling, Cardiovascular: Negative for chest pain, palpitations, and edema, Respiratory: Negative for shortness of breath, cough, wheezing, and pleuritic chest pain, Abdomen/GI: Negative for abdominal pain, nausea, vomiting, diarrhea, and constipation, Back: Negative for injury and pain, : Negative for injury, bleeding, discharge, and swelling, Skin: Negative for injury, rash, and discoloration, Neuro: Negative for headache, weakness, numbness, tingling, and seizure, Psych: Negative for depression, anxiety, suicide ideation, homicidal ideation, and hallucinations, Allergy/Immunology: Negative for hives, rash, and allergies, Endocrine: Negative for neck swelling, polydipsia, polyuria, polyphagia, and marked weight changes, Hematologic/Lymphatic: Negative for swollen nodes, abnormal bleeding, and unusual bruising. 09:11 MS/extremity: Positive for decreased range of motion, erythema, pain, swelling, tenderness, of the medial aspect of right toes, plantar aspect of right first toe and Right first toenail. Exam: 09:11 Constitutional: This is a well developed, well nourished patient who is awake, alert, wade and in no acute distress. Head/Face: Normocephalic, atraumatic. Eyes: Pupils equal round and reactive to light, extra-ocular motions intact. Lids and lashes normal. Conjunctiva and sclera are non-icteric and not injected. Cornea within normal limits. Periorbital areas with no swelling, redness, or edema. ENT: Nares patent. No nasal discharge, no septal abnormalities noted. Tympanic membranes are normal and external auditory canals are clear. Oropharynx with no redness, swelling, or masses, exudates, or evidence of obstruction, uvula midline. Mucous membranes moist. Neck: Trachea midline, no thyromegaly or masses palpated, and no cervical lymphadenopathy. Supple, full range of motion without nuchal rigidity, or vertebral point tenderness. No Meningismus. Chest/axilla: Normal chest wall appearance and motion. Nontender with no deformity. No lesions are appreciated. Cardiovascular: Regular rate and rhythm with a normal S1 and S2. No gallops, murmurs, or rubs. Normal PMI, no JVD. No pulse deficits. Respiratory: Lungs have equal breath sounds bilaterally, clear to auscultation and percussion. No rales, rhonchi or wheezes noted. No increased work of breathing, no retractions or nasal flaring. Abdomen/GI: Soft, non-tender, with normal bowel sounds. No distension or tympany. No guarding or rebound. No evidence of tenderness throughout. Back: No spinal tenderness. No costovertebral tenderness. Full range of motion. Skin: Warm, dry with normal turgor. Normal color with no rashes, no lesions, and no evidence of cellulitis. Neuro: Awake and alert, GCS 15, oriented to person, place, time, and situation. Cranial nerves II-XII grossly intact. Motor strength 5/5 in all extremities. Sensory grossly intact. Cerebellar exam normal. Normal gait. Psych: Awake, alert, with orientation to person, place and time. Behavior, mood, and affect are within normal limits. 09:11 Musculoskeletal/extremity: ROM: limited active range of motion due to pain, limited passive range of motion due to pain, in the medial aspect of right toes, plantar aspect of right first toe, right first toe and Right first toenail, Circulation is intact in all extremities. Sensation intact. 09:11 Skin: cellulitis, that is minimal, induration, that is mild is noted, Other grossly infected, necrotic distal tip. 10:04 ECG was reviewed by the Attending Physician. [facility] Vital Signs: 08:55 BP 156 / 83; Pulse 70; Resp 18 S; Temp 99.2(O); Pulse Ox 97% on R/A; aa5 10:00 BP 122 / 64; Pulse 66; Resp 10; Pulse Ox 100% ; bp 11:00 BP 124 / 76; Pulse 66; Resp 15; Pulse Ox 97% ; bp 12:51 BP 128 / 67; Pulse 63; Resp 11; Pulse Ox 99% ; bp 13:17 Weight 63.5 kg (R); Height 5 ft. 10 in. (177.80 cm) (R); jd3 13:17 Body Mass Index 20.09 (63.50 kg, 177.80 cm) jd3 MDM: 08:56 Patient medically screened. [facility] 09:15 Differential diagnosis: arthritis, cellulitis. Data reviewed: vital signs, nurses [facility] notes, lab test result(s), EKG, radiologic studies, doppler, plain films. Data interpreted: cardiac monitor technician: rate is 70 beats/min, rhythm is regular, Pulse oximetry: on room air is 97 %. Test interpretation: by ED physician or midlevel provider: ECG, plain radiologic studies. Counseling: I had a detailed discussion with the patient and/or guardian regarding: the historical points, exam findings, and any diagnostic results supporting the discharge/admit diagnosis, lab results, radiology results, the need for further work-up and treatment in the hospital. 09/30 09:10 Order name: Basic Metabolic Panel; Complete Time: 11:08 [facility] 09/30 09:10 Order name: CBC with Diff; Complete Time: 11:08 [facility] 09/30 09:10 Order name: LFT's; Complete Time: 11:08 [facility] 09/30 09:10 Order name: Magnesium; Complete Time: 11:08 [facility] 09/30 09:10 Order name: NT PRO-BNP; Complete Time: 11:08 [facility] 09/30 09:10 Order name: PT-INR; Complete Time: 11:08 [facility] 09/30 09:10 Order name: Troponin HS; Complete Time: 11:08 [facility] 09/30 09:10 Order name: Sed Rate; Complete Time: 11:08 [facility] 09/30 09:10 Order name: SARS-COV-2 RT PCR (Document "Date of Onset" if Symptomatic) [facility] 09/30 12:17 Order name: CBC with Automated Diff EDPR 09/30 12:17 Order name: CBC with Automated Diff EDPR 09/30 12:17 Order name: Comprehensive Metabolic Panel EDPR 09/30 12:17 Order name: Comprehensive Metabolic Panel EDPR 09/30 12:17 Order name: Vancomycin Level Trough EDPR 09/30 09:10 Order name: XRAY Chest (1 view); Complete Time: 11:08 [facility] 09/30 09:10 Order name: EKG; Complete Time: 09:11 [facility] 09/30 09:10 Order name: Foot Right 3 View XRAY; Complete Time: 11:08 [facility] 09/30 09:11 Order name: US LE Arterial Bilateral; Complete Time: 11:08 [facility] 09/30 12:17 Order name: CT RIGHT FOOT WO CONTRAST EDPR 09/30 12:17 Order name: CONS Physician Consult EDPR 09/30 12:17 Order name: Vancomycin Level Trough EDPR 09/30 12:17 Order name: Blood Culture EDPR 09/30 13:31 Order name: CT EDMS 09/30 09:10 Order name: Cardiac monitoring; Complete Time: 10:07 [facility] 09/30 09:10 Order name: EKG - Nurse/Tech; Complete Time: 10:07 [facility] 09/30 09:10 Order name: IV Saline Lock; Complete Time: 09:32 [facility] 09/30 09:10 Order name: Labs collected and sent; Complete Time: 09:32 [facility] 09/30 09:10 Order name: O2 Per Protocol; Complete Time: 09:32 [facility] 09/30 09:10 Order name: O2 Sat Monitoring; Complete Time: :32 wade 09/30 12:17 Order name: 60g Consistent Carbohydrate (ADA ) EDMS EC:04 Rate is 66 beats/min. Rhythm is regular. QRS [place] is Normal. HI interval is normal. QRS wade interval is normal. QT interval is normal. No Q waves. T waves are Normal. No ST changes noted. Clinical impression: NSR w/ Non-specific ST/T Changes and No evidence of ischemia. Interpreted by me. Reviewed by me. Administered Medications: 09:27 Drug: morphine 2 mg Route: IVP; Rate: per protocol; Site: right forearm; bp 10:06 Follow up: Response: No adverse reaction; Pain is decreased bp 09:27 Drug: morphine 2 mg Route: IVP; Rate: per protocol; Site: right forearm; bp 09:27 Drug: Zofran (Ondansetron) 4 mg Route: IVP; Site: right forearm; bp 10:06 Follow up: Response: No adverse reaction bp 09:40 Drug: NS 0.9% 1000 ml Route: IV; Rate: 125 ml/hr; Site: right forearm; bp 12:50 Follow up: IV Status: Infusion continued upon admission bp 09:40 Drug: Zosyn (piperacillin-tazobactam) 3.375 grams Route: IVPB; Infused Over: 60 mins; bp Site: right forearm; 10:07 Follow up: IV Status: Completed infusion; IV Intake: 100ml bp 10:06 Drug: Dilaudid (HYDROmorphone) 0.5 mg Route: IVP; Site: right forearm; bp 11:22 Follow up: Response: No adverse reaction; Pain is decreased bp 11:10 Drug: Dilaudid (HYDROmorphone) 0.5 mg Route: IVP; Site: right forearm; bp 12:50 Follow up: Response: No adverse reaction; Pain is decreased bp 11:10 Drug: Magnesium Sulfate 1 grams Route: IVPB; Infused Over: 1 hrs; Site: right forearm; bp 12:50 Follow up: IV Status: Completed infusion; IV Intake: 100ml bp Disposition Summary: 09/30/21 09:21 Hospitalization Ordered Hospitalization Status: Inpatient Admission wade Provider: Sonja Gutierrez cha Location: Telemetry/MedSurg (Inpatient) wade Condition: Stable wade Problem: new wade Symptoms: have improved wade Bed/Room Type: Standard wade Room Assignment: 217(09/30/21 12:48) dw Diagnosis - Idiopathic aseptic necrosis of right toe(s) - failed out patient treatment wade - Type 2 diabetes mellitus with hyperglycemia wade - Osteomyelitis, unspecified wade - Hypomagnesemia wade Forms: - Medication Reconciliation Form wade - SBAR form wade Signatures: Dispatcher [employer] Eda Davis RN RN dw Anderson, Corey, MD MD cha Calderon, Audri, RN RN aa5 Leonel Brower RN RN bp Corrections: (The following items were deleted from the chart) 12:48 09:21 wade dw
[2021-09-30] MEDS ORDERED: MORPHINE 4 MG/ML SYR ONE (09:29)
[2021-09-30] MEDS ORDERED: ONDANSETRON 4 MG/2 ML VIAL ONE (09:29)
[2021-09-30] MEDS ORDERED: NA CHLORIDE 0.9% 1,000 ML ONE (09:41)
[2021-09-30] MEDS ORDERED: PIPERACIL/TAZO 3.375 GM VIAL IV ONE (09:41)
[2021-09-30] MEDS ORDERED: NA CHLORIDE 0.9% 100 ML ONE (09:41)
[2021-09-30 09:43] LABS: Absolute Lymphocytes (CBC) 1.1 K/uL (0.7-4.9); Hematocrit 36.3 % (39.6-49.0); Lymphocytes % 16.1 % (15.3-44.8); RBC Red Blood Cell Count 4.74 M/uL (4.33-5.43)
[2021-09-30 09:46] LABS: Protime INR 1.05
[2021-09-30 10:03] LABS: Albumin 3.1 g/dL (3.4-5.0); Bilirubin Direct 0.1 mg/dL (0-0.2); Bilirubin Total 0.4 mg/dL (0.2-1.0); Magnesium 1.6 mg/dL (1.8-2.4); Potassium 4.2 mmol/L (3.5-5.1); Protein, Total 8.3 g/dL (6.4-8.2); Troponin High Sensitivity 5.3 pg/mL (<58.9)
[2021-09-30] MEDS ORDERED: HYDROMORPHONE HCL 0.5 MG/0.5 ML INJ ONE ×2 (10:10→11:21)
--- NOTE | 2021-09-30 10:15 | RAD REPORT ---
EXAM DESCRIPTION: RAD - Chest Single View - 09/30/2021 9:51 am CLINICAL HISTORY: COUGH, pending toe amputation COMPARISON: Portable 06/03/2021 TECHNIQUE: AP portable chest image was obtained 09/30/2021 9:51 am . FINDINGS: No acute lung parenchymal process. Interstitial pattern matches comparison. CABG surgical changes are present. Heart and vasculature are normal. No measurable pleural effusion and no pneumoth orax. No acute bony abnormality seen. No acute aortic findings suspected. IMPRESSION: No acute cardiopulmonary process. No significant change from comparison study.
--- NOTE | 2021-09-30 10:17 | RAD REPORT ---
EXAM DESCRIPTION: RAD - Foot Right 3 View - 09/30/2021 9:51 am CLINICAL HISTORY: Pain COMPARISON: Foot Right Wo Cont dated 06/04/2021; Foot Right 3 View dated 06/03/2021 FINDINGS: Bone destructive changes are present in the first distal phalanx. There is significant bon e loss and cortical disruption. The IP joint is preserved. No destructive changes seen in the first p roximal phalanx. No calcification or foreign body seen. Air densities are present suspected to be in the soft tissues rather than on the skin surface. IMPRESSION: Bone destructive osteomyelitis changes in the first distal phalanx. Soft tissue air densities are present consistent with soft tissue infectious process.
--- NOTE | 2021-09-30 10:20 | RAD REPORT ---
EXAM DESCRIPTION: US - Lower Extremity Arterial Bilat - 09/30/2021 9:51 am CLINICAL HISTORY: PAINbilateral lower extremities COMPARISON: None. TECHNIQUE: Doppler evaluation of the bilateral lower extremities performed. Waveforms were obtained along the length of each lower extremity. Visual inspection of the lower extremity arterial tree perf ormed. FINDINGS: Calcified and noncalcified plaquing changes are seen along the sandoval of the bilateral lowe r extremities. Right triphasic common femoral artery waveform pattern was obtained. Waveform pattern transitions to a biphasic femoral artery pattern an a monophasic pattern in the popliteal artery. Right dorsalis ped is artery waveform pattern was monophasic as well. Left common femoral biphasic waveform pattern was seen in remains biphasic into the popliteal artery. Monophasic dorsalis pedis waveform pattern was seen. Neither posterior tibial artery was identifiabl e either due to technical limitation or occlusion. From the common femoral to the popliteal arteries bilaterally there is no flow restricting lesion. IMPRESSION: Significant bilateral lower extremity arterial atherosclerotic change. No occlusion or f low restricting lesion in the common femoral, femoral or popliteal arteries. Neither posterior tibial artery could be identified as patent. This could be technical in nature or d ue to bilateral posterior tibial artery occlusion.
[2021-09-30] MEDS ORDERED: MAGNESIUM SULFATE 1 gm IVPB 1 GM/100 ML BAG IV ONE (11:22)
[2021-09-30] MEDS ORDERED: ALBUTEROL 2.5 MG/3 ML NEB SOL NEB PRN (12:08)
[2021-09-30] MEDS ORDERED: ONDANSETRON 4 MG/2 ML VIAL IV PRN (12:08)
[2021-09-30] MEDS ORDERED: ACETAMINOPHEN 500 MG TAB PO PRN (12:08)
[2021-09-30] MEDS ORDERED: HYDRALAZINE HCL 20 MG/ML VIAL IV PRN (12:14)
--- NOTE | 2021-09-30 12:20 | P.HP ---
Certification for Inpatient With expected LOS: >2 Midnights Patient will require the following post-hospital care: Home Health Services Practitioner: I am a practitioner with admitting privileges, knowledge of patient current condition, hospital course, and medical plan of care. Services: Services provided to patient in accordance with Admission requirements found in Title 42 Section 412.3 of the Code of Federal Regulations Patient History Date of Service: 09/30/21 Reason for admission: Bilateral toe infection History of Present Illness: 71-year-old male with history of hypertension, diabetes mellitus type 2 since about 45 years, CAD status post CABG x5 basal 5 years ago, with no subsequent chest pain, diabetic neuropathy on gabapentin presented because of nonhealing bi lateral great toe ulcer/wound. Patient was sent for podiatry officeDrGinny Neri for possible amputation. Patient states he has had a wound since over the last 3 months. He has been on a wound dressing as well as antibiotics as outpatient with no change. Wound appears to be getting gangrenous. He states he has had vascular work-up at [facility] and was told there was no problem. He will have where he is being seen for possible amputation of bilateral toes especially the right great toe. Allergies No Known Allergies Allergy (Verified 05/20/21 16:52) Home Medications: Acetaminophen 1,000 mg PO DAILY PRN 05/20/21 Dapagliflozin Propanediol [Farxiga] 5 mg PO DAILY 05/20/21 Ferrous Sulfate [Ferrous Sulfate*] 325 mg PO DAILY 05/20/21 Losartan Potassium 50 mg PO BEDTIME 05/20/21 Metformin HCl 1,000 mg PO BID 05/20/21 Atorvastatin Calcium 40 mg PO DAILY 06/03/21 Aspirin [Adult Aspirin Regimen] 162 mg PO DAILY #60 06/04/21 Metoprolol Succinate 25 mg PO DAILY #30 tab.er.24h 06/04/21 Pentoxifylline 400 mg PO BID #60 tablet.er 06/04/21 levoFLOXacin [Levaquin] 500 mg PO DAILY #7 tab 06/04/21 - Past Medical/Surgical History Diabetic: Yes -: HTN -: DM -: CAD -: CABG x5 - Social History Smoking Status: Never smoker Smoking therapy provided: No Patient receptive to therapy: No Alcohol use: Yes Caffeine use: No Place of Residence: Home Review of Systems 10-point ROS is otherwise unremarkable Physical Examination - Physical Exam General: Alert, In no apparent distress, Oriented x3 HEENT: Atraumatic, Normocephalic, PERRLA Neck: Supple, JVD not distended Respiratory: Clear to auscultation bilaterally, Normal air movement Cardiovascular: No edema, Normal pulses, Regular rate/rhythm, Normal S1 S2 Gastrointestinal: Normal bowel sounds, Soft and benign, Non-distended, W/out succussion splash Musculoskeletal: No clubbing, No swelling (Bilateral posterior wound over great toes, marked gangrene of right great toe with purulent discharge) Integumentary: No rashes, No breakdown Neurological: Normal gait, Normal speech, Normal strength at 5/5 x4 extr External genitalia: No edema Rectal: Normal - Studies Laboratory Data (last 24 hrs) 09/30/21 09:27: PT 11.6, INR 1.05 09/30/21 09:27: WBC 6.6, Hgb 11.7 L, Hct 36.3 L, Plt Count 291 09/30/21 09:27: Sodium 136, Potassium 4.2, BUN 20 H, Creatinine 0.87, Glucose 219 H, Magnesium 1.6 L, Total Bilirubin 0.4, AST 44 H, ALT 45, Alkaline P hosphatase 201 H Assessment and Plan Discharge Plan: Home - Advance Directives Does patient have a Living Will: No Does patient have a Durable POA for Healthcare: Yes - Code Status/Comfort Care Code Status: Full Code Physician Review Additional Text: Impression Bilateral great toe wound infections Right great toe gangrene Diabetic neuropathy Hypertension History of CAD HLD Plan we will admit patient to inpatient status Will consult podiatry for possible amputation of the right great toe Start empirical antibiotics with Vanco/cefepime Obtain blood culture x2 Obtain ESR as well as CT to rule out extension and possible osteomyelitis of the metatarsals Strict glycemic control Insulin sliding scale with Accu-Cheks Resume home regimen IV pain regimen as needed Advance directive full code Subcutaneous Lovenox for DVT prophylaxis May need PT after amputation Time Spent Managing Pts Care (In Minutes): 65
[2021-09-30] MEDS: NA CHLORIDE 0.9% 1,000 ML IV SCH (13:00)
--- NOTE | 2021-09-30 13:30 | RAD REPORT ---
EXAM DESCRIPTION: CT - Foot Right Wo Con - 09/30/2021 1:10 pm CLINICAL HISTORY: suspected osteomyeltiis of b/l feet COMPARISON: Foot Right 3 View dated 09/30/2021 FINDINGS: Fracture and osseous destruction at the great toe distal phalanx identified. No conclusive findings to suggest osteomyelitis at the first proximal phalanx. There is soft tissue gas at the tip of the great toe. No other fractures are identified. No other erosive process ease. Peripheral vascu lar calcifications. . IMPRESSION: Great toe distal phalanx fracture and osseous destruction concerning for osteomyelitis a nd overlying cellulitis. No conclusive findings to suggest osteomyelitis of the great toe proximal ph alanx. MRI could better exclude early osteomyelitis at this location. No other acute findings in the right foot identified.
[2021-09-30] MEDS: VANCOMYCIN 1.5 GM in NA CHLORIDE 0.9% 500 ML IVPB SCH (14:49)
[2021-09-30] MEDS: MORPHINE 4 MG/ML SYR IV PRN ×2 (15:33→21:09)
[2021-09-30] MEDS: INSULIN -REGULAR HUMAN 50 UNIT/0.5 ML ML SQ SCH ×2 (16:11→21:09)
[2021-09-30] MEDS: LOSARTAN POTASSIUM 50 MG TABLET PO SCH (21:08)
[2021-10-01 05:21] LABS: Hematocrit 31.3 % (39.6-49.0); Lymphocytes % 19.9 % (15.3-44.8); MPV 7.8 fL (7.6-11.3); RBC Red Blood Cell Count 4.07 M/uL (4.33-5.43)
[2021-10-01 05:36] LABS: Albumin 2.7 g/dL (3.4-5.0); Bilirubin Total 0.5 mg/dL (0.2-1.0); Potassium 4.2 mmol/L (3.5-5.1); Protein, Total 7.1 g/dL (6.4-8.2)
[2021-10-01] MEDS: INSULIN -REGULAR HUMAN 50 UNIT/0.5 ML ML SQ SCH ×4 (07:30→21:00)
[2021-10-01] MEDS: ATORVASTATIN 40 MG TAB PO SCH (08:25)
[2021-10-01] MEDS: CLOPIDOGREL 75 MG TABLET PO SCH (08:25)
[2021-10-01] MEDS: FERROUS SULFATE 325 MG TAB PO SCH (08:25)
[2021-10-01] MEDS: ENOXAPARIN 40 MG/0.4 ML SQ SCH (08:26)
[2021-10-01] MEDS: ASPIRIN EC 81 MG TAB PO SCH (08:26)
[2021-10-01] MEDS: MORPHINE 4 MG/ML SYR IV PRN ×2 (08:27→12:35)
[2021-10-01] MEDS: DAPAGLIFLOZIN PROPANEDIOL 5 MG PO SCH (09:00)
[2021-10-01] MEDS: VANCOMYCIN 1.5 GM in NA CHLORIDE 0.9% 500 ML IVPB SCH (10:48)
[2021-10-01] MEDS: ZINC SULFATE 220 MG CAP PO SCH (10:48)
--- NOTE | 2021-10-01 13:40 | P.PN ---
Subjective Date of Service: 10/01/21 Chief Complaint: Bilateral toe infection Subjective: No new changes, Tolerating diet (still pain with movement or touch of toes) Physical Examination - Vital Signs Temperature: 99.2 F Blood Pressure: 134/65 Pulse: 94 Respirations: 16 Pulse Ox (%): 96 Assessment And Plan Physician Review: Patient Assessed, Agree with Above Assessment and Plan Physician Review Additional Text: - Physical Exam General: Alert, In no apparent distress, Oriented x3 HEENT: Atraumatic, Normocephalic, PERRLA Neck: Supple, JVD not distended Respiratory: Clear to auscultation bilaterally, Normal air movement Cardiovascular: No edema, Normal pulses, Regular rate/rhythm, Normal S1 S2 Gastrointestinal: Normal bowel sounds, Soft and benign, Non-distended, W/out succussion splash Musculoskeletal: No clubbing, No swelling (Bilateral posterior wound over great toes, marked gangrene of right great toe with purulent discharge) Integumentary: No rashes, No breakdown Neurological: Normal gait, Normal speech, Normal strength at 5/5 x4 extr External genitalia: No edema Rectal: Normal Impression Bilateral great toe wound infections Right great toe gangrene Diabetic neuropathy Hypertension History of CAD HLD Plan Continue Vanco/cefepime Family did not want to continue follow-up with podiatryDr. [place] [facility] Dr. Pressley had consulted Evaluated and plan for right toe amputation in a.m. we will also do debridement of the left great toe ulcer Follow blood culture x2 CT of the foot shows evidence of cellulitis with osteomyelitis, follow post amputation Strict glycemic control Insulin sliding scale with Accu-Cheks Resume home regimen IV pain regimen as needed Advance directive full code Subcutaneous Lovenox for DVT prophylaxis May need PT after amputation 10/01/21 13:39 Time Spent Managing PTS Care (In Minutes): 35
[2021-10-01] MEDS: CEFEPIME 1 GM in NA CHLORIDE 0.9% 100 ML IV SCH ×2 (14:08→21:26)
--- NOTE | 2021-10-01 19:02 | CON ---
Date of Consultation: 10/01/2021 Reason For Consultation: Bilateral great toe infection. History Of Present Illness: Patient is a 71-year-old gentleman with hypertension, diabetes and coron reginald artery disease, who has been having these wounds on his big toes on both foot, right side worse t hill left. He [facility]. Nayak and has been treated as an outpatient with antibiotics and debridement, however, is not getting better. He did have an angiogra m in [place] and had angioplasty done, but the wound had drainage on the right side especially and as sociated with odor and redness and warmth. Therefore, he came to the emergency room for further eval uation. He denies any chest pain, any sore throat, runny nose, cough, headaches, or dizziness. No f ever or chills. Review of Systems: Otherwise unremarkable. Past Medical History: Hypertension, diabetes, peripheral vascular disease coronary artery disease. Past Surgical History: Significant for CABG x5. Allergies: NONE. Social History: The patient does not smoke. Does drink alcohol. Family History: Noncontributory. Physical Examination: Vital Signs: Are currently stable with temperature 99.2. General: He is awake, alert, and oriented x3. Head and Neck: Cranial nerves 2 through 12 are grossly within normal limits. No neck masses. No JV D. Throat clear. Neck is supple. Chest: Clear. Heart: S1, S2. Abdomen: Soft. Extremity: Diminished dorsalis pedis and posterior tibial pulses. However, he does have hair all th e way down to the distal part of his both legs as well as few of the toes. There is an approximately 2.5 cm gangrenous eschar present on both toe. First toe on both feet with 1 on the right showing so me purulence and more extensive destruction of the toe. It is on distal phalanx on both of them. Laboratory Data: Arterial Doppler reviewed shows significant bilateral lower extremity arterial athe rosclerotic changes. No occlusion or fluorescing lesions in the common femoral, femoral or popliteal arteries were seen. However, neither posterior tibial artery could be identified as patent. Patimarcella benton also had an x-ray done of the right foot which showed evidence of osteomyelitis as well as a CT of the right foot which shows same. His sedimentation rate is 18. His H and H are 11.7 and 36.3. His platelets are 291, white count is 6.6, INR is 1.05. Chemistry reviewed. Glucose is between 130 and 230. Assessment: A 71-year-old gentleman with multiple medical problems with peripheral vascular disease, osteomyelitis and gangrenous changes on both great toe. These are a probably grade 4/5 wounds. Recommendation: As conservative medical management has failed in treatment of this patient, I believ e the amputation of the right great toe and debridement of the left great toe would be the starting p oint. The patient and family understand the risks, benefits, and alternatives and agrees to procedur e. We will see how the patient reacts to this debridement and the amputation postoperatively to see whether he will need further procedures or not if his circulation is adequate the wounds should heal. If they are poor or compromised, he may need further debridement and/or amputation. Plan of care d iscussed in detail with the family. They understand as well as the patient and agreed. Please note, I did discuss the case with Dr. Nayak prior to seeing the patient. /MODL Voice ID: [id number] Report ID: [id number]
[2021-10-01] MEDS: LOSARTAN POTASSIUM 50 MG TABLET PO SCH (21:25)
[2021-10-01] MEDS: NA CHLORIDE 0.9% 1,000 ML IV SCH (21:26)
[2021-10-02] MEDS: VANCOMYCIN 1.5 GM in NA CHLORIDE 0.9% 500 ML IVPB SCH ×2 (01:44→21:36)
[2021-10-02] MEDS: INSULIN -REGULAR HUMAN 50 UNIT/0.5 ML ML SQ SCH ×4 (07:24→20:35)
--- NOTE | 2021-10-02 07:28 | EKG ---
Test Date: 2021-09-30 Test Time: 09:56:44 Pressed Or Blown Glass Worker: BP MEASUREMENT RESULTS: Intervals: Rate: 66 KS: QRSD: 104 QT: 492 QTc: 515 [place]: P: KS: QRS: -43 T: 62 INTERPRETIVE STATEMENTS: Accelerated Junctional rhythm Left axis deviation Septal infarct, age undetermined T wave abnormality, consider lateral ischemia Prolonged QT Abnormal ECG Compared to ECG 06/03/2021 09:46:24 Accelerated junctional rhythm now present Myocardial infarct finding now present T-wave abnormality now present Possible ischemia now present Prolonged QT interval now present Sinus rhythm no longer present ST (T wave) deviation no longer present Electronically Signed On 10-02-21 07:19:59 CDT by Ellis Dyer
[2021-10-02] MEDS: CEFEPIME 1 GM in NA CHLORIDE 0.9% 100 ML IV SCH ×2 (08:56→20:34)
[2021-10-02] MEDS: ASPIRIN EC 81 MG TAB PO SCH (08:59)
[2021-10-02] MEDS: FERROUS SULFATE 325 MG TAB PO SCH (09:00)
[2021-10-02] MEDS: ATORVASTATIN 40 MG TAB PO SCH (09:00)
[2021-10-02] MEDS: ENOXAPARIN 40 MG/0.4 ML SQ SCH (09:00)
[2021-10-02] MEDS: ZINC SULFATE 220 MG CAP PO SCH (09:00)
[2021-10-02] MEDS: DAPAGLIFLOZIN PROPANEDIOL 5 MG PO SCH (09:00)
[2021-10-02] MEDS: CLOPIDOGREL 75 MG TABLET PO SCH (09:00)
[2021-10-02] MEDS: MORPHINE 4 MG/ML SYR IV PRN ×3 (09:02→19:43)
[2021-10-02] MEDS ORDERED: COLLAGENASE 30 GM OINTMENT TOP ONE (11:34)
[2021-10-02] MEDS ORDERED: FENTANYL CITR 100 MCG/2 ML ONE (11:46)
[2021-10-02] MEDS ORDERED: propofoL 200 MG/20 ML VIAL IV ONE (11:46)
[2021-10-02] MEDS ORDERED: ONDANSETRON 4 MG/2 ML VIAL ONE (11:47)
[2021-10-02] MEDS ORDERED: LIDOCAINE 2% MPF 5 ML VIAL ONE (11:47)
--- NOTE | 2021-10-02 12:31 | P.OP ---
Date of Service: 10/02/21 Preop diagnosis: Osteomyelitis and gangrenous necrosis of right great toe and gangrenous necrosis of left great Postop diagnosis: Same Procedure performed: Right great toe amputation, debridement of left great toe gangrenous wound 3 x 2 cm to subcutaneous tissue and muscle layer Surgeon: Chong Jenkins MD Cash On Delivery Clerk: Ondina BAH Estimated blood loss: Minimal Specimen: Infected wound both foot and toe right great toe Findings: As above Anesthesia: General Complications: None Drains: None Fluids and blood products: Nonapplicable Disposition: Recovery room Operative note: Patient brought to the OR and placed in supine position. General anesthesia begun. Patient prepped and draped in usual sterile fashion. Marcaine 0.5% infiltrated for postop pain control. Then 15 blade used to excise the gangrenous necrosis on the plantar aspect of the distal left great toe down through the deep subcutaneous tissue and muscle layer approximately 3 x 2 cm. Wound irrigated and bleeding controlled with cautery. There was some fibrin present which was debrided further with scissors. Wound was dressed with Santyl dressing in the standard fashion. Then, the right great toe was amputated. A skin incision was made over the base of the distal phalanx surrounding the necrotic and gangrenous necrosis that was seen with destruction of the bone on the distal phalanx as well. The entire toe was excised and sent to pathology and cultures were done. And then a rongeur was used to debride the proximal phalanx down toward the metatarsal joint. Wrasp was used to smooth any rough edges. Wound was irrigated and bleeding was controlled with cautery. 2-0 chromic was used to close the subcutaneous tissue. 3-0 nylon was used to close the skin loosely. Sterile dressing was applied and patient awakened taken to recovery room in good general condition. CC:
[2021-10-02] MEDS ORDERED: EPHEDRINE SULF 50 MG/ML VIAL ONE (12:32)
--- NOTE | 2021-10-02 13:36 | P.PN ---
Subjective Date of Service: 10/02/21 Chief Complaint: Bilateral toe infection Subjective: NPO (Scheduled for amputation today) Physical Examination - Vital Signs Temperature: 97.4 F Blood Pressure: 132/61 Pulse: 79 Respirations: 16 Pulse Ox (%): 96 Assessment And Plan Physician Review: Patient Assessed, Agree with Above Assessment and Plan Physician Review Additional Text: Blood cultureno growth to date Toe wound culturemulti organismsstrep and gram-negative rods Procedure todayRight great toe amputation, debridement of left great toe gangrenous wound 3 x 2 cm to subcutaneous tissue and muscle layer - Physical Exam General: Alert, In no apparent distress, Oriented x3 HEENT: Atraumatic, Normocephalic, PERRLA Neck: Supple, JVD not distended Respiratory: Clear to auscultation bilaterally, Normal air movement Cardiovascular: No edema, Normal pulses, Regular rate/rhythm, Normal S1 S2 Gastrointestinal: Normal bowel sounds, Soft and benign, Non-distended, W/out succussion splash Musculoskeletal: No clubbing, status post right great toe amputation, dressing over left great toe Integumentary: No rashes, No breakdown Neurological: Normal gait, Normal speech, Normal strength at 5/5 x4 extr External genitalia: No edema Rectal: Normal Impression Bilateral great toe wound infections Right great toe gangrenewith osteomyelitisstatus post amputation today, status post debridement of the left great toe gangrenous wound Diabetic neuropathy Hypertension History of CAD HLD Plan Continue empiric antibiotics with Vanco/cefepime Follow-up pending full culture Continue strict glycemic control Continue Vanco/cefepime We will consult PT and OT, will need ambulation exercises Strict glycemic control Insulin sliding scale with Accu-Cheks IV pain regimen as needed Advance directive full code Subcutaneous Lovenox for DVT prophylaxis
[2021-10-02] MEDS: HYDROCODONE/APAP 7.5/325 MG TAB PO PRN ×2 (15:52→21:36)
[2021-10-02] MEDS: LOSARTAN POTASSIUM 50 MG TABLET PO SCH (20:34)
[2021-10-03] MEDS: MORPHINE 4 MG/ML SYR IV PRN ×3 (00:44→11:06)
[2021-10-03] MEDS: HYDROCODONE/APAP 7.5/325 MG TAB PO PRN ×2 (03:33→08:15)
[2021-10-03 04:10] LABS: Albumin 2.7 g/dL (3.4-5.0); Bilirubin Total 0.3 mg/dL (0.2-1.0); Protein, Total 7.2 g/dL (6.4-8.2)
[2021-10-03] MEDS: NA CHLORIDE 0.9% 1,000 ML IV SCH (07:40)
[2021-10-03] MEDS: ENOXAPARIN 40 MG/0.4 ML SQ SCH (08:02)
[2021-10-03] MEDS: CLOPIDOGREL 75 MG TABLET PO SCH (08:03)
[2021-10-03] MEDS: FERROUS SULFATE 325 MG TAB PO SCH (08:03)
[2021-10-03] MEDS: ATORVASTATIN 40 MG TAB PO SCH (08:03)
[2021-10-03] MEDS: ZINC SULFATE 220 MG CAP PO SCH (08:03)
[2021-10-03] MEDS: CEFEPIME 1 GM in NA CHLORIDE 0.9% 100 ML IV SCH (08:03)
[2021-10-03] MEDS: ASPIRIN EC 81 MG TAB PO SCH (08:03)
[2021-10-03] MEDS: INSULIN -REGULAR HUMAN 50 UNIT/0.5 ML ML SQ SCH ×2 (08:04→11:30)
[2021-10-03] MEDS: DAPAGLIFLOZIN PROPANEDIOL 5 MG PO SCH (08:05)
[2021-10-03 09:17] VITALS: O2SAT 98
--- NOTE | 2021-10-03 10:15 | P.PN ---
Date of Service: 10/03/21 Subjective: Patient is awake and alert. No significant pain. Patient has been able to ambulate to the bathroom. Objective: Vitals stable, afebrile. Cultures from the 20th reviewed--gram-negative joshua sensitive to most oral antibiotics Dressing is clean dry and intact Assessment: Status post right great toe amputation and debridement of left great toe Plan: Wound care as ordered, once patient is cleared by physical therapy--patient can be discharged home on oral antibiotics follow-up with me in the wound healing center next week. I will discussed the case with the hospitalist. CC:
[2021-10-03 12:58] VITALS: TEMP 98.6
--- NOTE | 2021-10-03 13:14 | P.DS ---
Admission Date: 09/30/21 Discharge Date: 10/03/21 Disposition: [place] [facility] Discharge Condition: FAIR Reason for Admission: Bilateral toe infection Brief History of Present Illness: 71-year-old male with history of hypertension, diabetes mellitus type 2 since about 45 years, CAD status post CABG x5 basal 5 years ago, with no subsequent chest pain, diabetic neuropathy on gabapentin presented because of nonhealing bilateral great toe ulcer/wound. Patient was sent for podiatry officeDrGinny Neri for possible amputation. Patient states he has had a wound since over the last 3 months. He has been on a wound dressing as well as antibiotics as outpatient with no change. Wound appears to be getting gangrenous. He states he has had vascular work-up at [facility] and was told there was no problem. He will have where he is being seen for possible amputation of bilateral toes especially the right great toe. Hospital Course: Patient admitted for gangrene of right great toe as well as nonhealing ulcer on left great toe. He was started on IV antibiotics. CT of the foot shows osteomyelitis of the right great toe. He was evaluated by surgery and underwent debridement of the left great toe as well as amputation of the right great toe. Sent to wound dressing daily to the left great toe debrided area has been advised. Post surgery patient feels much better his pain is significantly improved. He is ambulating with physical therapy. Toe wound culture grew multiple bacterial organisms. patient will be discharged home today on oral antibiotics for the next 7 days. - Physical Exam General: Alert, In no apparent distress, Oriented x3 HEENT: Atraumatic, Normocephalic, PERRLA Neck: Supple, JVD not distended Respiratory: Clear to auscultation bilaterally, Normal air movement Cardiovascular: No edema, Normal pulses, Regular rate/rhythm, Normal S1 S2 Gastrointestinal: Normal bowel sounds, Soft and benign, Non-distended, W/out succussion splash Musculoskeletal: No clubbing, dressing over right great toe bed, dressing with slight bruising over left great toe, Integumentary: No rashes, No breakdown Neurological: Normal gait, Normal speech, Normal strength at 5/5 x4 extr External genitalia: No edema Rectal: Normal Vital Signs/Physical Exam: Temp Pulse Resp BP Pulse Ox 98.6 F 83 16 170/77 H 99 10/03/21 12:00 10/03/21 12:00 10/03/21 12:00 10/03/21 12:00 10/03/21 12:00 Laboratory Data at Discharge: WBC 5.0 K/uL (4.3-10.9) D 10/01/21 05:10 Hgb 10.1 g/dL (13.6-17.9) L 10/01/21 05:10 Hct 31.3 % (39.6-49.0) L 10/01/21 05:10 Plt Count 262 K/uL (152-406) 10/01/21 05:10 PT 11.6 SECONDS (9.5-12.5) 09/30/21 09:27 INR 1.05 09/30/21 09:27 Sodium 140 mmol/L (136-145) 10/03/21 03:09 Potassium 4.0 mmol/L (3.5-5.1) 10/03/21 03:09 BUN 10 mg/dL (7-18) 10/03/21 03:09 Creatinine 0.71 mg/dL (0.55-1.3) 10/03/21 03:09 Glucose 244 mg/dL (74-106) H 10/03/21 03:09 Magnesium 1.6 mg/dL (1.8-2.4) L 09/30/21 09:27 Total Bilirubin 0.3 mg/dL (0.2-1.0) 10/03/21 03:09 AST 13 U/L (15-37) L 10/03/21 03:09 ALT 22 U/L (12-78) 10/03/21 03:09 Alkaline Phosphatase 140 U/L (45-117) H 10/03/21 03:09 Home Medications: Dapagliflozin Propanediol [Farxiga] 5 mg PO DAILY 05/20/21 Ferrous Sulfate [Ferrous Sulfate*] 325 mg PO DAILY 05/20/21 Losartan Potassium 100 mg PO DAILY 05/20/21 Metformin HCl 1,000 mg PO BID 05/20/21 Atorvastatin Calcium 40 mg PO BEDTIME 06/03/21 Acetaminophen with Codeine [Acetaminophen-Cod #4 Tablet] 1 tab PO Q6HP PRN 09/30/21 Amlodipine [Norvasc*] 5 mg PO DAILY 09/30/21 Clopidogrel Bisulfate [Plavix*] 1 tab PO DAILY 09/30/21 Gabapentin 300 mg PO TID 09/30/21 Insulin Detemir [Levemir Flextouch] 19 units SQ DAILY 09/30/21 Metoprolol Succinate [Toprol Xl*] 50 mg PO DAILY 09/30/21 Amoxicillin/Potassium Clav [Augmentin 500-125 Tablet] 1 each PO BID #12 tablet 10/03/21 Collagenase [Santyl Ointment*] 1 appl TOP DAILY #1 tube 10/03/21 New Medications: Amoxicillin/Potassium Clav [Augmentin 500-125 Tablet] 1 each PO BID #12 tablet Collagenase [Santyl Ointment*] 1 appl TOP DAILY #1 tube Diet: ADA Activity: Weight bearing as tolerated Followup: NONE,NONE [Primary Care Provider] - Chong Jenkins MD [ACTIVE - CAN ADMIT] - 1 Week Time spent managing pt's care (in minutes): 35
[2021-10-03] MEDS: VANCOMYCIN 1.5 GM in NA CHLORIDE 0.9% 500 ML IVPB SCH (14:00)
[2021-10-03 15:13] VITALS: BP 156/96
[2021-10-04] MEDS ORDERED: COLLAGENASE 30 GM OINTMENT TOP SCH (09:00)
== END 2021-10-03 15:32 | disposition home health service (06) | DRG 256 ==
LOC: ER 08:51 → ERHOLD 12:27 → 2ND 14:43
PROVIDERS: ADMIT Internal Medicine; ATTEND Internal Medicine
PROC: 0KBW0ZZ Excision of Left Foot Muscle, Open Approach (ICD-10-PCS; 2021-10-02)
PROC: 0Y6P0Z0 Detachment at Right 1st Toe, Complete, Open Approach (ICD-10-PCS; principal; 2021-10-02 10:45)
DX: E11.52 Type 2 diabetes mellitus with diabetic peripheral angiopathy with gangrene (principal); M86.171 Other acute osteomyelitis, right ankle and foot; L97.528 Non-pressure chronic ulcer of other part of left foot with other specified severity; L97.518 Non-pressure chronic ulcer of other part of right foot with other specified severity; I96 Gangrene, not elsewhere classified; L03.031 Cellulitis of right toe; B95.61 Methicillin susceptible Staphylococcus aureus infection as the cause of diseases classified elsewhere; B95.2 Enterococcus as the cause of diseases classified elsewhere; E11.621 Type 2 diabetes mellitus with foot ulcer; E11.69 Type 2 diabetes mellitus with other specified complication; E11.65 Type 2 diabetes mellitus with hyperglycemia; I10 Essential (primary) hypertension; I25.10 Atherosclerotic heart disease of native coronary artery without angina pectoris; E78.5 Hyperlipidemia, unspecified; B96.89 Other specified bacterial agents as the cause of diseases classified elsewhere; M89.771 Major osseous defect, right ankle and foot; Z20.822 Contact with and (suspected) exposure to COVID-19; Z79.84 Long term (current) use of oral hypoglycemic drugs; Z95.1 Presence of aortocoronary bypass graft
CPT/HCPCS: 36415; 71045; 73700; 80048; 80053; 80076; 80202; 82947; 83735; 83880; 84484; 85025; 85610; 85652; 87040; 87070; 87075; 87077; 87186; 87205; 88304; 88305; 88311; 93005; 93925; 96361; 96365; 96367; 96375; 99285; J0360; J0692; J1170; J1650; J1815; J2405; J2543; J2704; J3010; J3370; J3475; J3590; J7030; J7040; U0003

== ENCOUNTER 2022-05-07 10:30 | Day surgery (SDC) | payer OTHER ==
[2022-05-06 10:51] LABS: Absolute Lymphocytes (CBC) 1.7 K/uL (0.7-4.9); Hematocrit 39.1 % (39.6-49.0); Lymphocytes % 17.1 % (15.3-44.8); MCV 86.2 fL (80-100); MPV 8.6 fL (7.6-11.3); RBC Red Blood Cell Count 4.54 M/uL (4.33-5.43)
[2022-05-06 11:04] LABS: Potassium 5.2 mmol/L (3.5-5.1)
[~2022-05-07 10:30] MED LIST: ATROPINE SULF 1 MG/10 ML SYR IV ONE; FENTANYL CITR 100 MCG/2 ML ONE; HEPA 1000U/500MLS 2,000 UNIT/1,000 ML BAG IV ONE; HEPARIN 10,000 UNIT/10 ML VIAL IV ONE; LIDOCAINE 1% 20 ML MDV ONE; MIDAZOLAM HCL 2 MG/2 ML INJ ONE; NA CHLORIDE 0.9% 500 ML ONE
[2022-05-07] MEDS ORDERED: MIDAZOLAM HCL 2 MG/2 ML INJ ONE (11:48)
[2022-05-07 15:54] VITALS: BP 112/57; O2SAT 97
== END 2022-05-07 16:29 | disposition home or self-care (01) ==
LOC: CCL 10:30
PROVIDERS: ATTEND Radiology Diagnostic Radiology
DX: I70.245 Atherosclerosis of native arteries of left leg with ulceration of other part of foot (principal); I70.235 Atherosclerosis of native arteries of right leg with ulceration of other part of foot; I70.92 Chronic total occlusion of artery of the extremities; I25.10 Atherosclerotic heart disease of native coronary artery without angina pectoris; I10 Essential (primary) hypertension; E78.5 Hyperlipidemia, unspecified; E11.9 Type 2 diabetes mellitus without complications; Z95.1 Presence of aortocoronary bypass graft; Z79.899 Other long term (current) drug therapy
CPT/HCPCS: 85025; 80048; 36415; 82947; 75716; 37228; 76937; C1893; C1725; C1769; J2250; J3010; J7040; J1644; 36246; 75625; J0461; J2001

== ENCOUNTER 2022-09-17 07:30 | Day surgery (SDC) | payer OTHER ==
--- NOTE | 2022-09-15 09:26 | RAD REPORT ---
EXAM DESCRIPTION: Chiara Alan And Chivo (2 Views)09/15/2022 9:17 am CLINICAL HISTORY: Preop for toe dictation Hypertension COMPARISON: July 2022 FINDINGS: The lungs appear clear of acute infiltrate. The heart is normal size Post surgical changes involve the chest IMPRESSION: No acute abnormalities displayed
[2022-09-15 09:36] LABS: Absolute Lymphocytes (CBC) 1.6 K/uL (0.7-4.9); Hematocrit 39.4 % (39.6-49.0); Lymphocytes % 21.4 % (15.3-44.8); MCV 87.9 fL (80-100); MPV 8.5 fL (7.6-11.3); RBC Red Blood Cell Count 4.48 M/uL (4.33-5.43)
--- NOTE | 2022-09-15 10:14 | EKG ---
Test Date: 2022-09-15 Test Time: 08:59:47 Time Clock Repairer: TATIANA MEASUREMENT RESULTS: Intervals: Rate: 58 MA: 190 QRSD: 104 QT: 446 QTc: 437 Dudley: P: -17 MA: 190 QRS: -42 T: 85 INTERPRETIVE STATEMENTS: Sinus bradycardia Left axis deviation Abnormal ECG Compared to ECG 09/30/2021 09:56:44 Accelerated junctional rhythm no longer present Myocardial infarct finding no longer present T-wave abnormality no longer present Possible ischemia no longer present Prolonged QT interval no longer present Electronically Signed On 09-15-22 10:13:27 CDT by Ellis Dyer
[2022-09-17] MEDS ORDERED: CEFAZOLIN SODIUM 1 GM/VIAL ONE (08:09)
[2022-09-17] MEDS ORDERED: NA CHLORIDE 0.9% 1,000 ML ONE (08:09)
[2022-09-17] MEDS ORDERED: MIDAZOLAM HCL 2 MG/2 ML INJ ONE (08:55)
[2022-09-17] MEDS ORDERED: propofoL 200 MG/20 ML VIAL IV ONE (08:55)
[2022-09-17] MEDS ORDERED: FENTANYL CITR 100 MCG/2 ML ONE (08:56)
[2022-09-17] MEDS ORDERED: LIDOCAINE 2% MPF 5 ML VIAL ONE (08:56)
[2022-09-17] MEDS ORDERED: ONDANSETRON 4 MG/2 ML VIAL ONE (08:56)
[2022-09-17] MEDS ORDERED: BUPIVACAINE 0.5% PF 10 ML VIAL ONE (08:57)
[2022-09-17] MEDS ORDERED: EPHEDRINE SULF 50 MG/ML VIAL ONE (09:25)
--- NOTE | 2022-09-17 09:51 | P.OP ---
Date of Service: 09/17/22 Preop diagnosis: Nonhealing wound left great toe with osteomyelitis Postop diagnosis: Same Procedure performed: Left great toe amputation Surgeon: Chong Jenkins MD Logging Specialist: None Estimated blood loss: Minimal Specimen: Left great toe Findings: As above Anesthesia: General Complications: None Drains: None Fluids and blood products: Nonapplicable Disposition: Recovery room Operative note: Patient brought to the OR and placed in supine position. General anesthesia begun. Patient prepped and draped in the usual sterile fashion. Marcaine 0.5% right locally. 15 blade used to make a ellipse of skin around the top of the proximal phalanx to include the wound. Subcutaneous tissue divided and the distal toe as well as the nonhealing wound excised and sent to pathology as specimen. The proximal phalanx bone divided with a bone cutter. Rough edges smoothed out with rongeur and rasp. Wound irrigated and bleeding controlled cautery. 2-0 chromic used approximate subcutaneous tissue. 3-0 nylon used to close skin. Sterile dressing applied. Patient awakened and taken to recovery room in good general condition. CC:
[2022-09-17] MEDS ORDERED: HYDROCODONE/APAP 7.5/325 MG TAB PO PRN (09:55)
[2022-09-17] MEDS: HYDROMORPHONE HCL 1 MG/ML INJ ONE ×2 (10:00→10:08)
[2022-09-17 11:26] VITALS: BP 147/80; TEMP 98; O2SAT 71
== END 2022-09-17 11:15 | disposition home or self-care (01) ==
LOC: OR 07:30
PROVIDERS: ATTEND Surgery
PROC: 0Y6Q0Z1 Detachment at Left 1st Toe, High, Open Approach (ICD-10-PCS; principal; 2022-09-17 09:00)
DX: S91.102A Unspecified open wound of left great toe without damage to nail, initial encounter (principal); M86.9 Osteomyelitis, unspecified
CPT/HCPCS: 93005; 85025; 36415; 82947 ×2; 88305; 71046; 28160; J2704; J2001; J2250; J3010; J1170; J2405; J7030; J0690; 88311

== ENCOUNTER 2023-11-11 18:25 | Inpatient (IN) | payer OTHER ==
[2023-11-11 19:06] LABS: Absolute Eosinophils 0.1 K/uL (0-0.5); Absolute Lymphocytes (CBC) 1.2 K/uL (0.7-4.9); Absolute Monocytes 0.8 K/uL (0.1-1.3); Absolute Neutrophil 9.9 K/uL (1.8-8.0); Basophils % 0.4 % (0-1.3); Eosinophils % 0.6 % (0-4.4); Hemoglobin 9.5 g/dL (13.6-17.9); MCH 26.1 pg (27.0-35.0); MCHC 31.7 g/dL (32.0-36.0); MCV 82.5 fL (80-100); MPV 7.1 fL (7.6-11.3); Monocytes % 6.7 % (3.3-12.3); Neutrophils % 82.3 % (41.7-73.7); Nucleated Red Blood Cells % 0.1 % (0-0); Platelets 621 thou/uL (152-406); RBC Red Blood Cell Count 3.64 M/uL (4.33-5.43); Red Cell Distribution Width 17.8 % (12.1-15.2)
[2023-11-11] MEDS ORDERED: NA CHLORIDE 0.9% 1,000 ML ONE (19:20)
[2023-11-11 19:29] LABS: Anion Gap 10.3 mEq/L (5.0-15.0); Potassium 5.3 mEq/L (3.5-5.1)
[2023-11-11] MEDS ORDERED: INSULIN REGULAR (HUMAN) 100 UNIT/ML ONE (19:51)
[2023-11-11 20:08] LABS: Specific Gravity 1.027 (1.005-1.030); Sqamous Epithelial <5 /HPF (None Seen); Urine Bacteria <20 /HPF (<20); Urine Bilirubin NEGATIVE (Negative); Urine Blood Negative (Negative); Urine Clarity Clear (Clear); Urine Color Colorless (Yellow); Urine Crystals Unidentified Few /HPF (None Seen); Urine Culture Reflex Order NOT NEEDED; Urine Glucose 4+ (Over) (Negative); Urine Ketones 1+ (Negative); Urine Microscopic Reflex YN ORDER UMIC; Urine Mucus Slight /HPF (None Seen); Urine Nitrite NEGATIVE (Negative); Urine Protein NEGATIVE (Negative); Urine Urobilinogen Normal (Normal); Urine WBC <5 /HPF (<5); Urine Yeast (Budding) Few /HPF (None Seen)
--- NOTE | 2023-11-11 20:14 | RAD REPORT ---
EXAM DESCRIPTION: RAD - Chest Single View - 11/11/2023 7:56 pm CLINICAL HISTORY: COUGH Chest pain. COMPARISON: Chest Pa And Lat (2 Views) dated 09/15/2022; Chest Single View dated 08/01/2022; Chest Sing le View dated 09/30/2021; Chest Single View dated 06/03/2021; Abdomen Pelvis W Contrast dated 11/11/19 24 FINDINGS: Portable technique limits examination quality. There is a 5-6 cm area of consolidation right mid lung. This may represent a mass or pneumonia. The l eft lung is clear. The heart is normal in size.Sternotomy wires. IMPRESSION: Large 5-6 cm area of lung consolidation without air bronchograms in the right mid lung m ay represent a mass or pneumonia.
--- NOTE | 2023-11-11 20:15 | RAD REPORT ---
EXAM DESCRIPTION: CTAbdomen Pelvis W Contrast - 11/11/2023 8:03 pm CLINICAL HISTORY: Abdominal pain. ABD PAIN COMPARISON: <Comparisons> TECHNIQUE: Biphasic CT imaging of the abdomen and pelvis was performed with 100 ml non-ionic IV cont rast. All CT scans are performed using dose optimization technique as appropriate and may include automated exposure control or mA/KV adjustment according to patient size. FINDINGS: Trace right pleural fluid. Mild fatty liver. The spleen, pancreas, adrenal glands and kidneys show no acute process. No bowel obstruction, free air, free fluid or abscess. The appendix is normal. No evidence of signi ficant lymphadenopathy. Mild lumbar degenerative changes. IMPRESSION: No acute intra-abdominal or pelvic finding.
--- NOTE | 2023-11-11 21:09 | RAD REPORT ---
EXAM DESCRIPTION: CT - Thorax Wo Con CLINICAL HISTORY: Chest pain evaluate mass COMPARISON: No comparisons FINDINGS: There is a large area of lung consolidation seen involving the right middle lobe measuring approximately 16 cm anterior-posterior dimension. Within this lung consolidation is an internal necr otic/cystic component measuring 10 x 6.4 cm. The left lung is grossly clear. No pneumothorax. Several mildly prominent lymph nodes are present in the mediastinal and hilar region. Mild thoracic degenerative changes. No gross upper abdominal finding. All CT scans are performed using dose optimization technique as appropriate and may include automated exposure control or mA/KV adjustment according to patient size. IMPRESSION: Large area of lung consolidation measuring 16 cm predominately within the right middle l obe. Within this is a 10 cm necrotic region. Most likely this would be related to necrotizing pneumon ia. A less likely possibility would be airspace neoplasm. Bronchoscopy would be advised for further w orkup.
--- NOTE | 2023-11-11 21:39 | EDPHYS ---
Physician Documentation [facility] Name: Aubrey Cardozo Age: 73 yrs Sex: Male : 1950 Arrival Date: 11/11/2023 Time: 18:25 Bed 17 Private MD: ED Physician Al Kerns HPI: 11/10 21:38 This 73 yrs old Male presents to ER via Wheelchair with complaints of kb Weakness, Dehydration. 21:38 Pt is a 73 year old male who presents for weakness, decreased appetite, polyuria, kb polydipsia that started a couple of days ago. Also reports cough for 2-3 weeks. Daughters concerned that he is dehydration. Historical: - Allergies: 18:36 No Known Allergies; ko1 - Home Meds: 18:36 Unable to obtain [Active]; ko1 - PMHx: 18:36 diabetes mellitus; Hypercholesterolemia; Hypertensive disorder; ko1 - PSHx: 18:36 heart bypass; right shoulder; ko1 - Immunization history:: Adult Immunizations up to date. - Infectious Disease History:: Denies. - Social history:: Smoking status: Patient denies any tobacco usage or history of. ROS: 21:30 Constitutional: As per HPI kb Exam: 21:30 Constitutional: This is a well developed, well nourished patient who is awake, alert, kb and in no acute distress. Head/Face: Normocephalic, atraumatic. ENT: Moist Mucous membranes Cardiovascular: Regular rate Respiratory: Respirations even and unlabored. No increased work of breathing. Talking in full sentences Skin: Warm, dry with normal turgor. Normal color. MS/ Extremity: Pulses equal, no cyanosis. Neurovascular intact. Full, normal range of motion. Neuro: Awake and alert, GCS 15, oriented to person, place, time, and situation. Moves all extremities. Normal gait. 21:43 Abdomen/GI: Inspection: abdomen appears normal, Bowel sounds: normal, Palpation: soft, kb in all quadrants, mild abdominal tenderness, in all quadrants, Vital Signs: 18:31 BP 112 / 56; Pulse 75; Resp 16; Temp 97.2; Pulse Ox 95% ; ko1 21:00 BP 114 / 63; Pulse 73; Resp 18; Pulse Ox 97% ; cp4 11/11 00:38 BP 108 / 47; Pulse 80; Resp 16; Temp 97; Pulse Ox 95% ; vc1 MDM: 11/10 18:32 Patient medically screened. 21:29 Data reviewed: vital signs, nurses notes. Consideration of Admission/Observation kb Patient was admitted/placed on observation. Escalation of care including admission/observation considered. Management of patient was discussed with the following: Manager Reading: Dr Urias accepts pt for consult. Requests sputum culture and vancomycin added to antibiotics, . Management of patient was discussed with the following: Hospitalist: Dr Jaquez accepts pt for admission. Historians other than the Patient: Daughter/Son: daughters. Counseling: I had a detailed discussion with the patient and/or guardian regarding the historical points, exam findings, and any diagnostic results supporting the discharge/admit diagnosis, lab results, radiology results, the need for further work-up and treatment in the hospital. 11/10 18:41 Order name: CBC with Diff; Complete Time: 19:10 11/10 18:41 Order name: Basic Metabolic Panel; Complete Time: 19:42 11/10 18:41 Order name: Urinalysis w/ reflexes; Complete Time: 20:09 11/10 21:03 Order name: Glucose, Ancillary Testing; Complete Time: 21:04 [facility] 11/10 21:22 Order name: Blood Culture Adult (2) 11/10 21:22 Order name: Lactate w/ 2H reflex if indic.; Complete Time: 23:01 11/10 21:22 Order name: Protime (+inr); Complete Time: 23:34 11/10 21:22 Order name: Ptt, Activated; Complete Time: 23:34 11/10 21:22 Order name: LFT's; Complete Time: 22:45 11/10 21:30 Order name: Sputum Culture 11/10 22:34 Order name: Urinalysis w/ reflexes [facility] 11/10 22:34 Order name: CBC with Automated Diff [facility] 11/10 22:34 Order name: CBC with Automated Diff [facility] 11/10 22:34 Order name: Comprehensive Metabolic Panel [facility] 11/10 22:34 Order name: Comprehensive Metabolic Panel [facility] 11/10 19:03 Order name: Chest Single View XRAY; Complete Time: 20:23 11/10 19:03 Order name: CT Abd/Pelvis - IV Contrast Only; Complete Time: 20:23 kb 11/10 20:24 Order name: CT Chest Wo Con; Complete Time: 21:15 kb 11/10 21:22 Order name: EKG; Complete Time: 21:23 kb 11/10 18:41 Order name: IV Start; Complete Time: 19:05 kb 11/10 21:22 Order name: EKG - Nurse/Tech; Complete Time: 00:39 kb 11/10 22:28 Order name: Misc. Order: RecollectBlue top short; Complete Time: 23:05 ty Administered Medications: 19:25 Drug: NS 0.9% IV 1000 ml IV at 1000 ml once Route: IV; Rate: 1000 ml; Site: right cp4 forearm; 19:55 Drug: Insulin Regular Human IVP 10 units IVP once {Co-Signature: bryanna (Melody Rosa [address] RN).} Route: IVP; Site: right forearm; 23:09 Drug: Albuterol Inhalation 2.5 mg Inhalation once Route: Inhalation; 4 23:09 Drug: Piperacillin-Tazobactam IVPB 3.375 grams IVPB once over 60 mins; (mix in NS 100 cp4 mL); draw blood cultures prior to administrat Route: IVPB; Infused Over: 60 mins; Site: right forearm; 11/11 00:30 Drug: vancoMYCIN IVPB 1 grams IVPB once over 2 hrs; draw blood cultures prior to vc1 administration Route: IVPB; Infused Over: 2 hrs; Site: right wrist; Disposition Summary: 11/11/23 21:38 Hospitalization Ordered Notes: Hospitalization Status: Inpatient Admission kb Provider: Rip Jaquez Condition: Stable kb Problem: new kb Symptoms: are unchanged kb Bed/Room Type: Standard kb Location: Telemetry/MedSurg (observation)(11/11/23 23:47) vc1 Room Assignment: 223(11/12/23 00:07) vc1 Diagnosis - Pneumonia, unspecified organism kb - Hyperglycemia, unspecified kb Forms: - Medication Reconciliation Form kb - SBAR form kb - Leadership Thank You Letter kb Addendum: 12/03/2023 01:05 Co-signature as Attending Physician, Al Kerns MD I agree with the assessment and c plascencia plan of care. Signatures: Dispatcher [employer] Leona Grier FNP-C JOIE-Ckb Al Kerns MD MD cha Calcote, Vanessa, RN RN vc1 Tashia Gonzalez, RN RN [email or web address] Elisa Youngblood cp4 Swapnil Kaufman, Melody Levine RN mb9 Corrections: (The following items were deleted from the chart) 11/10 20:24 20:24 Thorax Wo Con+CT.RAD.BRZ ordered. EDMS EDMS 21:23 21:23 BLOOD CULTURE*+BA.LAB.BRZ ordered. EDMS EDMS 21:23 21:23 LACTATE+C.LAB.BRZ ordered. EDMS EDMS 21:23 21:23 PROTIME (+INR)+COAG.LAB.BRZ ordered. EDMS EDMS 21:23 21:23 PTT, ACTIVATED+COAG.LAB.BRZ ordered. EDMS EDMS 21:23 21:23 HEPATIC FUNCTION+C.LAB.BRZ ordered. EDMS EDMS 21:31 21:31 Sputum Culture+BA.LAB.BRZ ordered. EDMS EDMS 21:40 21:38 Pt is a 73 year old male who presents for weakness, decreased appetite, polyuria, kb polydipsia that started . kb 21:43 21:30 Constitutional: This is a well developed, well nourished patient who is awake, kb alert, and in no acute distress. Head/Face: Normocephalic, atraumatic. ENT: Moist Mucous membranes Cardiovascular: Regular rate Respiratory: Respirations even and unlabored. No increased work of breathing. Talking in full sentences Abdomen/GI: Soft, non-tender. No distention Skin: Warm, dry with normal turgor. Normal color. MS/ Extremity: Pulses equal, no cyanosis. Neurovascular intact. Full, normal range of motion. Neuro: Awake and alert, GCS 15, oriented to person, place, time, and situation. Moves all extremities. Normal gait. kb 22:39 21:38 Telemetry/MedSurg (Inpatient) kb vc1 22:39 21:38 kb vc1 23:47 22:39 [facility] ER HOLD vc1 vc1 23:47 22:39 ERHOLD- vc1 vc1 11/11 00:07 11/10 23:47 vc1 vc1
--- NOTE | 2023-11-11 21:39 | ER ---
Nurse's Notes [facility] Name: Aubrey Cardozo Age: 73 yrs Sex: Male : 1950 Arrival Date: 11/11/2023 Time: 18:25 Bed 17 Private MD: Diagnosis: Pneumonia, unspecified organism;Hyperglycemia, unspecified Presentation: 11/10 18:31 Chief complaint: Patient's son or daughter states: we think he is dehydrated, he is not ko1 eating well and he is always thirsty, has to pee a lot. Coronavirus screen: At this time, the client does not indicate any symptoms associated with coronavirus-19. Ebola Screen: No symptoms or risks identified at this time. Initial Sepsis Screen: Does the patient meet any 2 criteria? No. Patient's initial sepsis screen is negative. Does the patient have a suspected source of infection? No. Patient's initial sepsis screen is negative. Risk Assessment: Do you want to hurt yourself or someone else? Patient reports no desire to harm self or others. Onset of symptoms was November 11, 2023. 18:31 Method Of Arrival: Wheelchair ko1 18:31 Acuity: JAGDEEP 3 ko1 Triage Assessment: 18:36 General: Appears in no apparent distress. Behavior is calm, cooperative, appropriate ko1 for age. Pain: Denies pain. Historical: - Allergies: 18:36 No Known Allergies; ko1 - Home Meds: 18:36 Unable to obtain [Active]; ko1 - PMHx: 18:36 diabetes mellitus; Hypercholesterolemia; Hypertensive disorder; ko1 - PSHx: 18:36 heart bypass; right shoulder; ko1 - Immunization history:: Adult Immunizations up to date. - Infectious Disease History:: Denies. - Social history:: Smoking status: Patient denies any tobacco usage or history of. Screenin:45 [facility] ED Fall Risk Assessment (Adult) History of falling in the last 3 months, kc6 including since admission No falls in past 3 months (0 pts) Confusion or Disorientation No (0 pts) Intoxicated or Sedated No (0 pts) Impaired Gait No (0 pts) Mobility Assist Device Used No (0 pt) Altered Elimination No (0 pt) Score/Fall Risk Level 0 - 2 = Low Risk. Abuse screen: Denies threats or abuse. Denies injuries from another. Nutritional screening: No deficits noted. Tuberculosis screening: No symptoms or risk factors identified. Assessment: 18:45 General: Appears in no apparent distress. comfortable, well groomed, well developed, kc6 Behavior is calm, cooperative, appropriate for age. Pain: Denies pain. Neuro: Level of Consciousness is awake, alert, obeys commands, Oriented to person, place, time, situation, Appropriate for age Reports weakness. Cardiovascular: Capillary refill < 3 seconds. Respiratory: Airway is patent Trachea midline Respiratory effort is even, unlabored, Respiratory pattern is regular, symmetrical. GI: No signs and/or symptoms were reported involving the gastrointestinal system. : Parent/caregiver report the patient having urinary frequency. EENT: No signs and/or symptoms were reported regarding the EENT system. Derm: No signs and/or symptoms reported regarding the dermatologic system. Skin is intact, is healthy with good turgor, Skin is pink, warm \T\ dry. Musculoskeletal: No signs and/or symptoms reported regarding the musculoskeletal system. Circulation, motion, and sensation intact. Capillary refill < 3 seconds, Range of motion: intact in all extremities. Vital Signs: 18:31 BP 112 / 56; Pulse 75; Resp 16; Temp 97.2; Pulse Ox 95% ; ko1 21:00 BP 114 / 63; Pulse 73; Resp 18; Pulse Ox 97% ; cp4 08/01 00:38 BP 108 / 47; Pulse 80; Resp 16; Temp 97; Pulse Ox 95% ; vc1 ED Course: 11/10 18:26 Patient arrived in ED. rg4 18:32 [facility] Chapin [facility]C [facility] kb 18:32 Al Kerns MD is Attending Physician. kb 18:35 Triage completed. ko1 18:36 Arm band placed on right wrist. Patient placed in an exam room, on a stretcher, on ko1 innovations paraprofessional, on pulse oximetry, Patient notified of wait time. 18:45 Patient has correct armband on for positive identification. Bed in low position. Call kc6 light in reach. Side rails up X 1. Adult w/ patient. Pulse ox on. NIBP on. Warm blanket given. 19:00 Report given to Glo Youngblood RN. kc6 19:05 Basic Metabolic Panel Sent. kc6 19:05 CBC with Diff Sent. kc6 19:05 Inserted saline lock: 22 gauge in right forearm, using aseptic technique. Blood kc6 collected. Flushed with 10 mL NS. 19:25 Elsia Youngblood is Primary Nurse. cp4 19:26 Urinalysis w/ reflexes Sent. cp4 19:26 Urine collected: clean catch specimen, clear. cp4 19:58 Chest Single View XRAY In Process Unspecified. EDMS 20:02 CT Abd/Pelvis - IV Contrast Only In Process Unspecified. EDMS 20:44 CT Chest Wo Con In Process Unspecified. EDMS 21:38 Rip Jaquez MD is Hospitalizing Provider. kb 23:05 Urinalysis w/ reflexes Sent. cp4 11/11 01:08 Assisted with urinal. Cleaned of incontinence. vk 01:48 No provider procedures requiring assistance completed. Patient admitted, IV remains in vc1 place. Administered Medications: 11/10 19:25 Drug: NS 0.9% IV 1000 ml IV at 1000 ml once Route: IV; Rate: 1000 ml; Site: right cp4 forearm; 19:55 Drug: Insulin Regular Human IVP 10 units IVP once {Co-Signature: bryanna (Melody Rosa 4 Julianna RN).} Route: IVP; Site: right forearm; 23:09 Drug: Albuterol Inhalation 2.5 mg Inhalation once Route: Inhalation; cp4 23:09 Drug: Piperacillin-Tazobactam IVPB 3.375 grams IVPB once over 60 mins; (mix in NS 100 cp4 mL); draw blood cultures prior to administrat Route: IVPB; Infused Over: 60 mins; Site: right forearm; 11/11 00:30 Drug: vancoMYCIN IVPB 1 grams IVPB once over 2 hrs; draw blood cultures prior to vc1 administration Route: IVPB; Infused Over: 2 hrs; Site: right wrist; Medication: 00:36 VIS not applicable for this client. vc1 Outcome: 11/10 21:38 Decision to Hospitalize by Provider. kb 11/11 01:48 Admitted to Med/surg accompanied by tech, via wheelchair, room 223, vc1 Condition: good Instructed on the need for admit, 01:49 Patient left the ED. vc1 Signatures: Dispatcher [employer] EDMS Leona Chapin, JOIE-C [employer]-Cynthia Quiñonez rg4 Radha Mathias RN RN vc1 Belkis Ferguson RN RN kc6 Tashia Gonzalez RN RN ko1 Elisa Youngblood cp4 Mayela Dejesus Mary Beth RN mb9 Corrections: (The following items were deleted from the chart) 11/10 21:17 19:00 BP 114 / 63; Pulse 73bpm; Resp 18bpm; Pulse Ox 97% RA; cp4 cp4 11/11 01:18 01:08 Cleaned of incontinence. lorna rothman
[2023-11-11] MEDS ORDERED: ONDANSETRON 4 MG/2 ML VIAL IV PRN (22:30)
[2023-11-11 22:38] LABS: AST/SGOT 11 U/L (15-37); Albumin 1.9 g/dL (3.4-5.0); Albumin/Globulin Ratio 0.3 (1.1-1.8); Alkaline Phosphatase 153 U/L (45-117); Bilirubin Direct 0.2 mg/dL (0-0.2); Bilirubin Indirect, Calculated 0.2 mg/dL (0.2-0.8); Bilirubin Total 0.4 mg/dL (0.2-1.0); Globulin 5.8 g/dL (2.3-3.5); Protein, Total 7.7 g/dL (6.4-8.2)
[2023-11-11 22:40] LABS: ALT/SGPT < 14 U/L (16-61)
[2023-11-11] MEDS ORDERED: ALBUTEROL 2.5 MG/3 ML NEB SOL ONE (22:49)
[2023-11-11] MEDS ORDERED: NA CHLORIDE 0.9% 100 ML ONE (22:49)
[2023-11-11] MEDS ORDERED: PIPERACIL/TAZO 3.375 GM VIAL IV ONE (22:50)
--- NOTE | 2023-11-11 23:06 | P.HP ---
Certification for Inpatient With expected LOS: >2 Midnights Practitioner: I am a practitioner with admitting privileges, knowledge of patient current condition, hospital course, and medical plan of care. Services: Services provided to patient in accordance with Admission requirements found in Title 42 Section 412.3 of the Code of Federal Regulations Patient History Date of Service: 11/12/23 Reason for admission: weight loss , weakness History of Present Illness: 73-year-old male with history of coronary artery disease, history of CABG, history of diabetes, osteoarthritis presents to the ER with complaints of weakness and concerns for dehydration. Family reports that patient has had poor oral intake for the last 3 weeks. Concern for weight loss estimated at 15 pounds. He states that his appetite fluctuates. Denies any recent fevers, cough or shortness of breath. A CT of the chest showed large area of consolidation measuring 16 cm within the 10 cm necrotic region concern for necrotizing pneumonia. A CT of the abdomen and pelvis was done which did not show any acute abdominal findings. pulmonary was contacted in the emergency room recommend admission with sputum cultures. The patient denies shortness of breath or cough or fever Allergies No Known Allergies Allergy (Verified 09/15/22 08:45) Home Medications: Dapagliflozin Propanediol [Farxiga] 5 mg PO DAILY 05/20/21 Ferrous Sulfate [Ferrous Sulfate*] 325 mg PO DAILY 05/20/21 Losartan Potassium 100 mg PO DAILY 05/20/21 Metformin HCl 1,000 mg PO BID 05/20/21 Atorvastatin Calcium 40 mg PO BEDTIME 06/03/21 Acetaminophen with Codeine [Acetaminophen-Cod #4 Tablet] 1 tab PO Q6HP PRN 09/30/21 Amlodipine [Norvasc*] 5 mg PO DAILY 09/30/21 Clopidogrel Bisulfate [Plavix*] 1 tab PO DAILY 09/30/21 Gabapentin 300 mg PO TID 09/30/21 Insulin Detemir [Levemir Flextouch] 19 units SQ DAILY 09/30/21 Metoprolol Succinate [Toprol Xl*] 50 mg PO DAILY 09/30/21 Aspirin [[place] Aspirin EC] 81 mg PO DAILY 09/15/22 - Past Medical/Surgical History Diabetic: Yes -: HTN -: DM -: CAD -: HLD -: CABG x5 -: R shoulder surgery - Social History Alcohol use: Yes CD- Drugs: No Caffeine use: Yes Review of Systems 10-point ROS is otherwise unremarkable General: Weakness, Malaise Physical Examination - Physical Exam General: Alert, Oriented x3, Cachectic HEENT: Atraumatic, Normocephalic Neck: Supple Respiratory: Clear to auscultation bilaterally Cardiovascular: Regular rate/rhythm, Normal S1 S2 Gastrointestinal: Soft and benign, Non-distended Musculoskeletal: No clubbing, No swelling, Other (atrophy) Integumentary: No rashes Neurological: Normal speech - Studies Laboratory Data (last 24 hrs) 11/11/23 11/11/23 11/11/23 22:06 18:58 18:58 WBC 12.00 H Hgb 9.5 L Hct 30.0 L Plt Count 621 H Sodium 126 L Potassium 5.3 H BUN 20 H Creatinine 0.94 Glucose 549 H* Total Bilirubin 0.4 AST 11 L ALT < 14 L Alkaline Phosphatase 153 H Assessment and Plan - Problems (Diagnosis) (1) Weight loss Current Visit: Yes Status: Acute (2) Pneumonia Current Visit: Yes Status: Acute (3) CAD (coronary artery disease) Current Visit: No Status: Acute (4) HTN (hypertension) Current Visit: No Status: Acute (5) Hx of CABG Current Visit: No Status: Acute (6) Diabetes Current Visit: No Status: Chronic - Plan 73-year-old male with history of hypertension, coronary disease, osteoarthritis presents with complaints of weakness, weight loss and poor oral intake pneumonia -- Concern for necrotizing pneumonia, pulmonary was called in the ER. Will start the patient on Zosyn and vancomycin. Follow-up sputum cultures. Will check a QuantiFERON gold. -- The patient may need bronchoscopy. Await pulmonary evaluation Weight loss -- Patient appears to be chronically malnourished. Family reports that weight loss is more recent. He may benefit from nutrition consult. A CT of the abdomen pelvis was also done. Cachexia protein calorie malnutrition -- Nutrition consult Coronary artery disease -- Will restart home medications Diabetes mellitus -- Uncontrolled -- FSBS, sliding scale insulin, restart home basal insulin DVT: Lovenox - Advance Directives Does patient have a Living Will: No Does patient have a Durable POA for Healthcare: No
[2023-11-11 23:24] LABS: PT Prothrombin Time 12.6 SECONDS (9.4-12.5); Protime INR 1.13
[2023-11-11 23:25] LABS: PTT, Activated Partial Thromb 29.8 SECONDS (24.3-36.9)
[2023-11-12] MEDS ORDERED: VANCOMYCIN 1 GM/VIAL ONE (00:23)
[2023-11-12] MEDS ORDERED: NA CHLORIDE 0.9% 250 ML ONE (00:23)
[2023-11-12] MEDS: VANCOMYCIN 500 MG in NA CHLORIDE 0.9% 100 ML IVPB ONE (01:15)
[2023-11-12 02:23] VITALS: BMI 23.3
[2023-11-12] MEDS: NA CHLORIDE 0.9% 1,000 ML IV SCH (02:24)
[2023-11-12 07:04] LABS: Absolute Basophils 0.1 K/uL (0-0.5); Absolute Eosinophils 0.1 K/uL (0-0.5); Absolute Lymphocytes (CBC) 1.4 K/uL (0.7-4.9); Absolute Monocytes 0.8 K/uL (0.1-1.3); Absolute Neutrophil 10.1 K/uL (1.8-8.0); Basophils % 0.5 % (0-1.3); Eosinophils % 0.9 % (0-4.4); Hematocrit 28.7 % (39.6-49.0); Hemoglobin 8.9 g/dL (13.6-17.9); Lymphocytes % 10.9 % (15.3-44.8); MCH 25.9 pg (27.0-35.0); MCHC 31.1 g/dL (32.0-36.0); MCV 83.4 fL (80-100); MPV 7.6 fL (7.6-11.3); Monocytes % 6.6 % (3.3-12.3); Neutrophils % 81.1 % (41.7-73.7); Platelets 549 thou/uL (152-406); RBC Red Blood Cell Count 3.45 M/uL (4.33-5.43); Red Cell Distribution Width 17.1 % (12.1-15.2)
[2023-11-12 07:27] LABS: Albumin 1.9 g/dL (3.4-5.0); Albumin/Globulin Ratio 0.3 (1.1-1.8); Alkaline Phosphatase 117 U/L (45-117); Anion Gap 14.5 mEq/L (5.0-15.0); BUN Blood Urea Nitrogen 14 mg/dL (7-18); Bicarbonate 25 mEq/L (21-32); Bilirubin Total 0.5 mg/dL (0.2-1.0); Globulin 5.9 g/dL (2.3-3.5); Glomerular Filtration Rate 99 ml/min (=/>90); Glucose Level 226 mg/dL (74-106); Potassium 4.5 mEq/L (3.5-5.1); Protein, Total 7.8 g/dL (6.4-8.2); Sodium Level 134 mEq/L (136-145)
[2023-11-12 07:28] LABS: ALT/SGPT < 14 U/L (16-61); AST/SGOT < 10 U/L (15-37)
[2023-11-12] MEDS: INSULIN REGULAR (HUMAN) 100 UNIT/ML SQ SCH (07:30)
[2023-11-12] MEDS: ENOXAPARIN 40 MG/0.4 ML SQ SCH (08:25)
[2023-11-12] MEDS: PIPER TAZO 3.375 GM in NA CHLORIDE 0.9% 100 ML IV SCH (08:25)
[2023-11-12] MEDS: AMLODIPINE 5 MG TAB PO SCH (08:25)
[2023-11-12] MEDS: ASPIRIN EC 81 MG TAB PO SCH (08:26)
[2023-11-12 08:46] VITALS: O2SAT 95
[2023-11-12] MEDS ORDERED: VANCOMYCIN 0.75 GM in NA CHLORIDE 0.9% 150 ML IVPB SCH (09:00)
--- NOTE | 2023-11-12 11:34 | P.PN ---
Subjective Date of Service: 11/12/23 Chief Complaint: weight loss , weakness Pt is resting comfortably in bed. She complain of dry cough and soreness on the left chest wall. He is getting iv vanc and zosyn. No other complaints. Review of Systems General: Unremarkable Eyes: Unremarkable ENT: Unremarkable Respiratory: SOB with Excertion Cardiovascular: Unremarkable Gastrointestinal: Unremarkable Genitourinary: Unremarkable Musculoskeletal: Unremarkable Integumentary: Unremarkable Neurological: Unremarkable Lymphatics: Unremarkable Physical Examination - Vital Signs Temperature: 97.4 F Blood Pressure: 103/59 Pulse: 77 Respirations: 16 Pulse Ox (%): 92 - Physical Exam General: Alert, In no apparent distress, Oriented x3 HEENT: Atraumatic, Normocephalic, PERRLA Neck: Supple, 2+ carotid pulse no bruit, JVD not distended Respiratory: Clear to auscultation bilaterally, Normal air movement Cardiovascular: No edema, Normal pulses, Regular rate/rhythm, Normal S1 S2 Capillary refill: <2 Seconds Gastrointestinal: Normal bowel sounds, Soft and benign, Non-distended Musculoskeletal: No clubbing, No swelling, No contractures Integumentary: No rashes, No breakdown, No significant lesion, Tenderness/swelling (on left chest wall) Neurological: Normal gait, Normal strength at 5/5 x4 extr, Normal tone, Sensation intact, Cranial nerves 3-12 intact Lymphatics: No axilla or inguinal lymphadenopathy - Studies Laboratory Data (last 24 hrs) 11/11/23 11/11/23 11/11/23 22:06 18:58 18:58 WBC 12.00 H Hgb 9.5 L Hct 30.0 L Plt Count 621 H Sodium 126 L Potassium 5.3 H BUN 20 H Creatinine 0.94 Glucose 549 H* Total Bilirubin 0.4 AST 11 L ALT < 14 L Alkaline Phosphatase 153 H Assessment And Plan - Plan Sepsis 2/2 pneumonia: CT chest shows necrotizing pneumonia. Will continue iv vanc and zosyn. F/u blood cx. Consulted Pulm. Will f/u sputum cx and QuantiFERON gold. Pt may need bronchoscopy. Weight loss: Will r/o TB. Patient appears to be chronically malnourished. A CT of the abdomen pelvis was also done. Anemia: Hgb is 8.9. Will monitor H/H. transfuse when Hgb < 7. Cachexia protein calorie malnutrition: Consulted Lamination Technician. Coronary artery disease: Will continue home med Diabetes mellitus: Will continue accuhek, SSI and ADA diet. DVT: Lovenox Dispo: Pending hospital course
--- NOTE | 2023-11-12 12:01 | P.CNS ---
Date of Consult: 11/12/23 Reason for Consult: Right upper lobe pneumonia Chief Complaint: weight loss , weakness History of Present Illness: Kidney 73 years of age Citizen Of The [place]-speaking full medical problems admitted with weakness some some dehydration poor oral intake weight loss denies any fever chills chest pain or shortness of breath found to have a necrotic pneumonia on the right side dementia denies tobacco abuse doing fine right now Allergies No Known Allergies Allergy (Verified 09/15/22 08:45) Home Medications: Dapagliflozin Propanediol [Farxiga] 5 mg PO DAILY 05/20/21 Ferrous Sulfate [Ferrous Sulfate*] 325 mg PO DAILY 05/20/21 Losartan Potassium 100 mg PO DAILY 05/20/21 Metformin HCl 1,000 mg PO BID 05/20/21 Atorvastatin Calcium 40 mg PO BEDTIME 06/03/21 Acetaminophen with Codeine [Acetaminophen-Cod #4 Tablet] 1 tab PO Q6HP PRN 09/30/21 Amlodipine [Norvasc*] 5 mg PO DAILY 09/30/21 Clopidogrel Bisulfate [Plavix*] 1 tab PO DAILY 09/30/21 Gabapentin 300 mg PO TID 09/30/21 Insulin Detemir [Levemir Flextouch] 19 units SQ DAILY 09/30/21 Metoprolol Succinate [Toprol Xl*] 50 mg PO DAILY 09/30/21 Aspirin [[place] Aspirin EC] 81 mg PO DAILY 09/15/22 - Past Medical/Surgical History Diabetic: Yes -: HTN -: DM -: CAD -: HLD -: CABG x5 -: R shoulder surgery - Social History Alcohol use: Yes CD- Drugs: No Caffeine use: Yes Place of Residence: Home Review of Systems 10-point ROS is otherwise unremarkable General: Weakness Physical Examination Temp Pulse Resp BP Pulse Ox 97.4 F 77 16 103/59 L 92 11/12/23 11:57 11/12/23 11:57 11/12/23 11:57 11/12/23 11:57 11/12/23 11:57 General: Alert, In no apparent distress, Oriented x3 HEENT: Atraumatic Neck: Supple Respiratory: Crackles/rales (The right upper lobe) Cardiovascular: No edema, Regular rate/rhythm, Normal S1 S2 Gastrointestinal: Normal bowel sounds, Soft and benign Laboratory Data (last 24 hrs) 11/11/23 11/11/23 11/11/23 22:06 18:58 18:58 WBC 12.00 H Hgb 9.5 L Hct 30.0 L Plt Count 621 H Sodium 126 L Potassium 5.3 H BUN 20 H Creatinine 0.94 Glucose 549 H* Total Bilirubin 0.4 AST 11 L ALT < 14 L Alkaline Phosphatase 153 H - Problems (1) Pneumonia Current Visit: Yes Status: Acute Plan: Patient is 73 years of age admitted with weakness to thrive he does have right upper lobe consolidation most likely pneumococcal pneumonia count is mildly elevated his blood sugar is mildly elevated normocytic anemia signs are stable blood pressure is little low DC amlodipine P.o. levofloxacin once the blood cultures are negative DC vancomycin nasal cultures for MRSA chest x-rays all reviewed patient satisfactory for discharge cultures are negative on levofloxacin for 10 days Qualifiers: Laterality: right Lung location: upper lobe of lung
[2023-11-12] MEDS: Levofloxacin 750mg IV 750 MG/150 ML BAG IV SCH (12:49)
[2023-11-12] MEDS: DIPHENHYDRAMINE 50 MG/ML VIAL IV PRN (14:12)
[2023-11-12] MEDS: VANCOMYCIN 1.25 GM in NA CHLORIDE 0.9% 250 ML IVPB SCH (17:22)
[2023-11-12 19:12] LABS: Specific Gravity > 1.030 (1.005-1.030); Sqamous Epithelial None Seen /HPF (None Seen); Urine Bacteria <20 /HPF (<20); Urine Bilirubin NEGATIVE (Negative); Urine Blood Negative (Negative); Urine Clarity Clear (Clear); Urine Color Light-Yellow (Yellow); Urine Culture Reflex Order REFLEXED; Urine Glucose 4+ (Over) (Negative); Urine Ketones 1+ (Negative); Urine Microscopic Reflex YN ORDER UMIC; Urine Mucus Slight /HPF (None Seen); Urine Nitrite NEGATIVE (Negative); Urine Protein NEGATIVE (Negative); Urine RBC 21-50 /HPF (None Seen); Urine Urobilinogen Normal (Normal); Urine Yeast (Budding) Few /HPF (None Seen)
[2023-11-12] MEDS ORDERED: VANCOMYCIN 1.25 GM in NA CHLORIDE 0.9% 250 ML IVPB SCH (20:00)
[2023-11-12] MEDS: GLUCERNA SHAKE 237 ML CAN PO SCH (21:35)
[2023-11-12] MEDS: ACETAMINOPHEN 500 MG TAB PO PRN (21:40)
[2023-11-13] MEDS ORDERED: GUAIFENESIN/DM 5 ML UCUP PO PRN (00:18)
[2023-11-13 06:43] LABS: Absolute Basophils 0.1 K/uL (0-0.5); Absolute Eosinophils 0.1 K/uL (0-0.5); Absolute Lymphocytes (CBC) 1.7 K/uL (0.7-4.9); Absolute Monocytes 0.8 K/uL (0.1-1.3); Absolute Neutrophil 9.5 K/uL (1.8-8.0); Basophils % 0.6 % (0-1.3); Eosinophils % 0.7 % (0-4.4); Hemoglobin 9.3 g/dL (13.6-17.9); Lymphocytes % 13.9 % (15.3-44.8); MCH 25.8 pg (27.0-35.0); MCV 83.4 fL (80-100); MPV 7.5 fL (7.6-11.3); Monocytes % 6.3 % (3.3-12.3); Neutrophils % 78.5 % (41.7-73.7); Nucleated Red Blood Cells % 0.1 % (0-0); Platelets 560 thou/uL (152-406); Red Cell Distribution Width 17.5 % (12.1-15.2)
[2023-11-13 07:26] LABS: AST/SGOT 11 U/L (15-37); Albumin 1.9 g/dL (3.4-5.0); Albumin/Globulin Ratio 0.3 (1.1-1.8); Alkaline Phosphatase 107 U/L (45-117); Anion Gap 18.7 mEq/L (5.0-15.0); BUN Blood Urea Nitrogen 11 mg/dL (7-18); Bicarbonate 21 mEq/L (21-32); Bilirubin Total 0.6 mg/dL (0.2-1.0); Globulin 6.1 g/dL (2.3-3.5); Glomerular Filtration Rate 101 ml/min (=/>90); Glucose Level 217 mg/dL (74-106); Potassium 4.7 mEq/L (3.5-5.1); Sodium Level 137 mEq/L (136-145)
[2023-11-13 07:28] LABS: ALT/SGPT < 14 U/L (16-61)
--- NOTE | 2023-11-13 07:32 | RAD REPORT ---
EXAM DESCRIPTION: RAD - Chest Pa And Lat (2 Views) - 11/13/2023 6:11 am CLINICAL HISTORY: pneumonia Chest pain. COMPARISON: Chest Single View dated 11/11/2023; Chest Pa And Lat (2 Views) dated 09/15/2022; Chest Sing le View dated 08/01/2022; Chest Single View dated 09/30/2021 FINDINGS: The large area of airspace consolidation in the right upper lobe anteriorly shows no casiano e since prior study. The left lung appears grossly clear. The heart is normal in size. Sternotomy wir es are present. IMPRESSION: No significant change is seen in the right upper lobe large area of airspace consolidati on since 11/11/2023 prior study.
[2023-11-13] MEDS: CEFTRIAXONE 1,000 MG in NA CHLORIDE 0.9% 50 ML IVPB SCH (08:39)
--- NOTE | 2023-11-13 12:55 | P.DS ---
Admission Date: 11/11/23 Discharge Date: 11/13/23 Disposition: ROUTINE DISCHARGE Discharge Condition: GOOD Reason for Admission: weight loss , weakness Brief History of Present Illness: 73-year-old male with history of coronary artery disease, history of CABG, history of diabetes, osteoarthritis presents to the ER with complaints of weakness and concerns for dehydration. Family reports that patient has had poor oral intake for the last 3 weeks. Concern for weight loss estimated at 15 pounds. He states that his appetite fluctuates. Denies any recent fevers, cough or shortness of breath. A CT of the chest showed large area of consolidation measuring 16 cm within the 10 cm necrotic region concern for necrotizing pneumonia. A CT of the abdomen and pelvis was done which did not show any acute abdominal findings. pulmonary was contacted in the emergency room recommend admission with sputum cultures. The patient denies shortness of breath or cough or fever Hospital Course: Pt is a 73 yo male with past medical history of coronary artery disease s/p CABG, diabetes, and osteoarthritis who presented with SOB, dehydration, and weakness. Pt also complained of poor oral intake for the last 3 weeks and he noticed weight loss of 15 pounds. On admission, CT chest showed large area of consolidation measuring 16 cm within the 10 cm necrotic region concern for necrotizing pneumonia. CT abdomen and pelvis did not show any acute abdominal findings. We continued iv vanc and zosyn. [employer] Shop Supervisor evaluated pt and recommended Augmentin and Doxycycline for 14 days. We ordered quantiferron test and advised pt to follow up with [employer] Shop Supervisor in clinic within 1 week. We continued home meds for otherc hronic medical problems. Pt was in NAD prior to discharge. Vital Signs/Physical Exam: Temp Pulse Resp BP Pulse Ox 98.9 F 90 13 119/56 L 97 11/13/23 08:00 11/13/23 08:00 11/13/23 08:00 11/13/23 08:00 11/13/23 08:00 Laboratory Data at Discharge: WBC 12.10 thou/uL (4.3-10.9) H 11/13/23 06:24 Hgb 9.3 g/dL (13.6-17.9) L 11/13/23 06:24 Hct 30.0 % (39.6-49.0) L 11/13/23 06:24 Plt Count 560 thou/uL (152-406) H 11/13/23 06:24 PT 12.6 SECONDS (9.4-12.5) H 11/11/23 22:50 INR 1.13 11/11/23 22:50 APTT 29.8 SECONDS (24.3-36.9) 11/11/23 22:50 Sodium 137 mEq/L (136-145) 11/13/23 06:24 Potassium 4.7 mEq/L (3.5-5.1) 11/13/23 06:24 BUN 11 mg/dL (7-18) 11/13/23 06:24 Creatinine 0.65 mg/dL (0.70-1.30) L 11/13/23 06:24 Glucose 217 mg/dL (74-106) H 11/13/23 06:24 Total Bilirubin 0.6 mg/dL (0.2-1.0) 11/13/23 06:24 AST 11 U/L (15-37) L 11/13/23 06:24 ALT < 14 U/L (16-61) L 11/13/23 06:24 Alkaline Phosphatase 107 U/L (45-117) 11/13/23 06:24 Home Medications: Dapagliflozin Propanediol [Farxiga] 5 mg PO DAILY 05/20/21 Ferrous Sulfate [Ferrous Sulfate*] 325 mg PO DAILY 05/20/21 Losartan Potassium 100 mg PO DAILY 05/20/21 Metformin HCl 1,000 mg PO BID 05/20/21 Atorvastatin Calcium 40 mg PO BEDTIME 06/03/21 Acetaminophen with Codeine [Acetaminophen-Cod #4 Tablet] 1 tab PO Q6HP PRN 09/30/21 Amlodipine [Norvasc*] 5 mg PO DAILY 09/30/21 Clopidogrel Bisulfate [Plavix*] 1 tab PO DAILY 09/30/21 Gabapentin 300 mg PO TID 09/30/21 Insulin Detemir [Levemir Flextouch] 19 units SQ DAILY 09/30/21 Metoprolol Succinate [Toprol Xl*] 50 mg PO DAILY 09/30/21 Aspirin [[place] Aspirin EC] 81 mg PO DAILY 09/15/22 Amox/Clavulanate [Augmentin 875-125 Tab] 875 mg PO BID 14 Days #28 tab 11/13/23 Doxycycline Hyclate 100 mg PO BID 14 Days #28 tab 11/13/23 New Medications: Amox/Clavulanate [Augmentin 875-125 Tab] 875 mg PO BID 14 Days #28 tab Doxycycline Hyclate 100 mg PO BID 14 Days #28 tab Physician Discharge Instructions: Continue ad tej activity. Take augmentin 875/125 po BID and doxycycline 100mg po BID for 14 days. Follow up with PCP and [employer] Shop Supervisor within 2 weeks. Diet: AHA Activity: Ad tej Followup: Davey Urias MD [ACTIVE - CAN ADMIT] - 1-2 Weeks Nafisa Vargas PA [Primary Care Provider] - 1-2 Weeks
[2023-11-13 13:05] VITALS: BP 109/55; TEMP 98.1
--- NOTE | 2023-11-13 13:34 | EKG ---
Test Date: 2023-11-12 Test Time: 00:42:56 Prison Classification Counselor: MICHAELA MEASUREMENT RESULTS: Intervals: Rate: 83 CA: 186 QRSD: 110 QT: 412 QTc: 484 [place]: P: 58 CA: 186 QRS: 5 T: 92 INTERPRETIVE STATEMENTS: Normal sinus rhythm Septal infarct, age undetermined Abnormal ECG Compared to ECG 09/15/2022 08:59:47 Myocardial infarct finding now present Sinus bradycardia no longer present Left-axis deviation no longer present Electronically Signed On 11-13-23 13:30:15 CDT by King Jaimes
== END 2023-11-13 14:15 | disposition home or self-care (01) | DRG 871 ==
LOC: ER 18:25 → ERHOLD 22:26 → 2ND 11-12 01:23
PROVIDERS: ADMIT Internal Medicine; ATTEND Hospitalist
DX: A40.3 Sepsis due to Streptococcus pneumoniae (principal); E43 Unspecified severe protein-calorie malnutrition; J13 Pneumonia due to Streptococcus pneumoniae; R64 Cachexia; E86.0 Dehydration; E11.65 Type 2 diabetes mellitus with hyperglycemia; E78.00 Pure hypercholesterolemia, unspecified; I10 Essential (primary) hypertension; M19.90 Unspecified osteoarthritis, unspecified site; D50.9 Iron deficiency anemia, unspecified; F03.90 Unspecified dementia, unspecified severity, without behavioral disturbance, psychotic disturbance, mood disturbance, and anxiety; I25.10 Atherosclerotic heart disease of native coronary artery without angina pectoris; Z79.4 Long term (current) use of insulin; Z95.1 Presence of aortocoronary bypass graft; Z79.82 Long term (current) use of aspirin; Z68.23 Body mass index [BMI] 23.0-23.9, adult; Z79.84 Long term (current) use of oral hypoglycemic drugs; Z79.02 Long term (current) use of antithrombotics/antiplatelets; Z79.899 Other long term (current) drug therapy
CPT/HCPCS: 36415; 71045; 71046; 71250; 74177; 80048; 80053; 80076; 80202; 81001; 82947; 83036; 83605; 85025; 85610; 85730; 86480; 87040; 87070; 87077; 87086; 87088; 87186; 87205; 93005; 99285; J0696; J1200; J1650; J2543; J7030; J7050; J7613; Q9967